=== PATIENT | male | born 1940 | race Caucasian/White ===

== ENCOUNTER 2023-10-04 09:17 | Inpatient (IN) | payer MEDICARE, OTHER, SELFPAY ==
[2023-10-04] VITALS (17 sets, daily range): BP systolic 110–147; BP diastolic 39–79; PULSE 55–62; RESP 17–22; TEMP 36.5–36.9; O2SAT 92–98; BMI 21.6; BMI 21.3
--- NOTE | 2023-10-04 08:37 | ED_ITS ---
[facility] Adult General Chief complaint: Weakness Stated complaint: Weakness Time Seen by Provider: 10/04/23 09:18 History of Present Illness HPI narrative: 83-year-old gentleman with a history of type 2 diabetes, gout hypertension, hyperlipidemia, very hard of hearing was seen at [facility] on September 27 and with complaints of nausea vomiting chills general weakness and headache starting 9-10 days ago. He was told that he likely had a virus but apparently the viral panel was unremarkable. CT scans of the abdomen, head, blood work all showed no other etiology. They are presenting to [facility] almost a week later still complaining of global weakness to the point that he is unable to get off the couch. He has apparently been on the couch for the last week. He is dizzy when he sits up, complains of having no energy and his is concerned that he is becoming disoriented. He has a minimal cough at most and today was noted to be febrile to 100.5?. Related Data Allergies Allergy/AdvReac Type Severity Reaction Status Date / Time No Known Drug Allergies Allergy Verified 10/04/23 09:29 Review of Systems Review of Systems Narrative: Pertinent positive and negative findings as per HPI Patient History Medical History (Updated 10/04/23 @ 12:19 by Gretel Jha MD) Gout Hypertension Hyperlipidemia Type 2 diabetes mellitus Social History Smoking Status: Former smoker Exam Initial Vital Signs Initial Vital Signs: Vital Signs Pulse Rate 57 L 10/04/23 09:13 Pulse Oximetry 95 10/04/23 09:13 General: Chronically ear elder appearing gentleman extremely hard of hearing dry mucous membranes developing vesicles on the left side of the lower lip but alert, appropriate and able to respond appropriately when he is able to hear the questions HEENT: Dry mucous membranes, normal sclera with reactive pupils, Neck: No JVD, supple, no cervical adenopathy Respiratory: Lungs are clear to auscultation, no wheezing no rales no rhonchi. Full and symmetrical air movement Cardiac: Regular rate and rhythm no murmurs no bruits Abdomen: Soft, nontender, good bowel tones, no flank pain Skin: Warm and dry, no rashes, decreased skin turgor overall Neurologic: Globally weak but otherwise Grossly neurologically intact with no obvious asymmetries or abnormalities Extremities: No trauma, well perfused, no lower extremity edema Psych: Cooperative, appropriate insight and affect Course Orders Ordered: ED Orders 10/04/23 09:17 XR chest 1V Stat Urinalysis and Microscopic Stat 10/04/23 09:18 EKG-12 Lead Stat 10/04/23 09:20 Type and Screen Stat 10/04/23 09:29 Complete Blood Count AUTO DIFF Stat Comprehensive Metabolic Panel Stat Lactate (Lactic Acid) Stat Lipase Stat Magnesium Stat Procalcitonin Stat Troponin I Stat 10/04/23 09:30 Respiratory Panel (Film Array) Stat 10/04/23 10:50 Blood Culture Stat Discontinued Medications Sodium Chloride (Normal Saline 0.9%) 1,000 mls @ 1,000 mls/hr IV BOLUS ONE Stop: 10/04/23 11:01 Last Admin: 10/04/23 10:36 Dose: 1,000 mls/hr Documented By: PHILIPPE Ondansetron HCl (Ondansetron 4 Mg/2 Ml Inj) 4 mg IV NOW ONE Stop: 10/04/23 09:18 Last Admin: 10/04/23 09:45 Dose: 4 mg Documented By: ALENA Oxycodone/Acetaminophen (Oxycodone/Acetaminophen 5/325 Tablet) 2 tab PO NOW ONE Stop: 10/04/23 09:18 Last Admin: 10/04/23 10:04 Dose: Not Given Documented By: ALENA Vital Signs Vital signs: Vital Signs - 8 hr 10/04/23 09:13 10/04/23 09:14 10/04/23 09:14 Temperature Pulse Rate 57 L 57 L Respiratory Rate Blood Pressure 125/79 Pulse Oximetry 95 97 Oxygen Delivery Method 10/04/23 09:20 10/04/23 09:30 10/04/23 09:30 Temperature 97.9 F Pulse Rate 57 L 60 Respiratory Rate 18 Blood Pressure 125/79 122/60 Pulse Oximetry 98 97 Oxygen Delivery Method Room Air 10/04/23 10:00 10/04/23 10:00 10/04/23 10:24 Temperature Pulse Rate 58 L 55 L Respiratory Rate Blood Pressure 138/65 Pulse Oximetry 98 Oxygen Delivery Method 10/04/23 10:31 10/04/23 10:37 10/04/23 11:00 Temperature Pulse Rate 58 L 60 Respiratory Rate Blood Pressure 140/61 Pulse Oximetry 92 94 Oxygen Delivery Method Room Air 10/04/23 11:01 10/04/23 11:01 10/04/23 11:30 Temperature Pulse Rate 60 61 Respiratory Rate 22 Blood Pressure 110/56 L Pulse Oximetry 96 98 Oxygen Delivery Method 10/04/23 11:31 10/04/23 11:31 Temperature Pulse Rate 62 Respiratory Rate 20 Blood Pressure 131/60 Pulse Oximetry 98 Oxygen Delivery Method Room Air Medical Decision Making Lab Data 10/04/23 09:29 10/04/23 09:29 Labs: Lab Results 10/04/23 10/04/23 10/04/23 Range/Units 09:20 09:29 09:30 WBC 10.8 (4.5-11.0) X10^3/uL RBC 2.74 L (4.5-5.9) X10^6/uL Hgb 8.6 L (13.5-17.5) g/dL Hct 24.3 L (41-53) % MCV 88.8 (80-100) fL MCH 31.5 (26-34) PG MCHC 35.5 (30-36) % RDW 15.1 H (11.6-14.8) % Plt Count 306 (150-400) X10^3/uL Neut % (Auto) 74.3 (50-75) % Lymph % (Auto) 9.8 L (25-40) % Mineral % (Auto) 15.2 H (3-14) % Eos % (Auto) 0.5 L (2-4) % Baso % (Auto) 0.2 (0-2) % Neut # (Auto) 8000 H (9972-5032) /uL Lymph # (Auto) 1100 (2081-1968) /uL Mineral # (Auto) 1600 H (0-900) /uL Eos # (Auto) 100 (0-450) /uL Baso # (Auto) 0 (0-100) /uL Sodium 134 L (137-145) mmol/L Potassium 4.4 (3.4-5.1) mmol/L Chloride 106 (98-107) mmol/L Carbon Dioxide 21 L (22-32) mmol/L BUN 16 (9-20) mg/dL Creatinine 0.80 (0.66-1.25) mg/dL Estimated GFR > 60 (>60) mL/min BUN/Creatinine Ratio 20.0 (6-22) Glucose 124 H (80-110) mg/dL Lactate 1.3 (0.7-2.1) mmol/L Calcium 7.5 L (8.4-10.2) mg/dL Magnesium 1.8 (1.6-2.3) mg/dL Total Bilirubin 1.4 H (0.2-1.3) mg/dL AST 80 H (17-59) IU/L ALT 77 H (<50) IU/L Alkaline Phosphatase 76 (38-126) U/L Troponin I < 0.012 (0.01-0.034) ng/mL Total Protein 6.3 (6.3-8.2) g/dL Albumin 2.8 L (3.5-5.0) g/dL Globulin 3.5 (1.7-4.1) g/dL Albumin/Globulin Ratio 0.8 L (1.0-2.8) Lipase 123 (23-300) U/L Procalcitonin 0.31 (<0.5) ng/mL Chlamy pneumoniae PCR Not detected (Not Detect) Adenovirus (PCR) Not detected (Not Detect) B.parapertussis DNA PCR Not detected (Not Detecte) Coronavirus OC43 (PCR) Not detected (Not Detect) Coronavirus HKU1 (PCR) Not detected (Not Detect) Coronavirus 229E (PCR) Not detected (Not Detect) SARS-CoV-2 (PCR) Not detected (Not Detecte) Coronavirus NL63 (PCR) Not detected (Not Detect) Human Metapneumovir PCR Not detected (Not Detect) Influenza Type A (PCR) Not detected (Not Detect) Influenza Type B (PCR) Not detected (Not Detect) M. pneumoniae (PCR) Not detected (Not Detect) Parainfluenza 1 (PCR) Not detected (Not Detect) Parainfluenza 2 (PCR) Not detected (Not Detect) Parainfluenza 3 (PCR) Not detected (Not Detect) Parainfluenza 4 (PCR) Not detected (Not Detect) RSV (PCR) Not detected (Not Detect) Entero/Rhino (PCR) Not detected (Not Detect) Blood Type O Positive Antibody Screen Negative MDM Narrative Medical decision making narrative: CC: Weakness, currently day 10 after reported influenza diagnosis Complicating co-morbidities: Age, lives independently with his Data collected from: patient Medical records reviewed: Notes from [facility] from ED visits on September 27 and for same complaints are reviewed Differential considered: Viral syndrome with weakness, developing pneumonia, myocarditis, intra-abdominal abscess Exam documented above, pertinent findings include: Patient is globally weak but has no specific localizing findings Rectal exam shows weakly guaiac-positive brown soft stool Lab Test results independently reviewed as above. Pertinent findings: CBC shows a white count of 10.8, H&H of 8.6 and 24.3. No significant left shift. Platelets are appropriate. On September 27 H&H was 11.1 and 34.1 Chemistries show normal renal function. Calcium is slightly low but corrects with albumin. Liver studies show bilirubin at 1.4, AST at 80, ALT at 77, these are increased from low baseline numbers appreciated on September 27. Lactic acid is appropriate Serology shows no obvious viruses Procalcitonin is not elevated No pancreatitis Troponin is undetectable Independently reviewed EKG: Sinus bradycardia at a rate of 57. Left axis deviation with nonspecific conduction delay. No acute ischemic changes Imaging studies independently reviewed: Chest x-ray shows mild cardiomegaly, no obvious infiltrates, minor interstitial findings consistent with a viral pneumonia Consultations: Hospitalist Treatments: Fluids, type and screen, Zosyn antibiotics after blood cultures were obtained Re-evaluations: Patient is in formalin plans and uncertain etiology of his hearing loss, fevers and mild acute anemia Discussion: 83-year-old gentleman who has been having symptoms over the last 10 days of weakness, getting worse. Initially had CT scans of the abdomen following day had his head scanned labs were entirely unremarkable. Comes in today with continued complaints of weakness. Low-grade fever at 100.5. He is globally weak all over without any localizing symptoms. He is exceptionally hard of hearing. His H&H has dropped over the last 4-5 days. Type and screen has been ordered this will be trended. He is weakly guaiac-positive with soft brown stool in the rectal vault. Care is reviewed with Dr. Best, admitting hospitalist. We will go ahead and begin antibiotics in light of the slight fever and continue to evaluate. At this point there is no evidence of acute renal failure, stroke liver failure, sepsis or viral pathology as identified by our viral panel. Discharge Plan Departure Patient Disposition: Admitted as Observation Clinical Impression: Weakness Anemia Qualifiers: Anemia type: unspecified type Qualified Code(s): D64.9 - Anemia, unspecified Admit Date/Time: 10/04/23 12:19
--- NOTE | 2023-10-04 09:17 | DI.RAD.S_ITS ---
PROCEDURE: XR CHEST 1V INDICATIONS: weakness TECHNIQUE: One view of the chest was acquired. COMPARISON: None. FINDINGS: Surgical changes and devices: None. Lungs and pleura: Generalized interstitial prominence can be seen. No pleural effusions or pneumothorax. Mediastinum: The cardiac contours are at the upper limits of normal. The aorta demonstrates calcification and tortuosity. Bones and chest wall: No suspicious bony lesions. Age-appropriate bony degenerative changes are seen. Overlying soft tissues appear unremarkable. IMPRESSION: Generalized interstitial prominence can be seen. This is attributed to pulmonary edema in this patient with the heart size at the upper limits of normal. However, differential diagnosis includes baseline parenchymal coarsening. Dictated by: Zoran Stark M.D. on 10/04/2023 at 8:42 Approved by: Zoran Stark M.D. on 10/04/2023 at 8:44
[2023-10-04 09:45] LABS: Add Manual Diff / Slide Review NO; Basophils Absolute Auto 0 /uL (0-100); Basophils Percent Auto 0.2 % (0-2); Eosinophils Absolute Auto 100 /uL (0-450); Eosinophils Percent Auto 0.5 % (2-4); Hematocrit 24.3 % (41-53); Hemoglobin 8.6 g/dL (13.5-17.5); Lymphocytes Absolute Auto 1100 /uL (1100-4500); Lymphocytes Percent Auto 9.8 % (25-40); Mean Corpuscular HGB Conc 35.5 % (30-36); Mean Corpuscular Hemoglobin 31.5 PG (26-34); Mean Corpuscular Volume 88.8 fL (80-100); Monocytes Absolute Auto 1600 /uL (0-900); Monocytes Percent Auto 15.2 % (3-14); Neutrophils Absolute Auto 8000 /uL (1500-7000); Neutrophils Percent Auto 74.3 % (50-75); Platelet Count 306 X10^3/uL (150-400); Red Blood Cell Count 2.74 X10^6/uL (4.5-5.9); Red Cell Distribution Width 15.1 % (11.6-14.8); White Blood Cell Count 10.8 X10^3/uL (4.5-11.0)
[2023-10-04] MEDS: ONDANSETRON 4 MG/2 ML INJ IV (09:45)
[2023-10-04 09:57] LABS: Alanine Aminotransferase 77 IU/L (<50); Albumin 2.8 g/dL (3.5-5.0); Albumin Globulin Ratio 0.8 (1.0-2.8); Alkaline Phosphatase 76 U/L (38-126); Aspartate Aminotransferase 80 IU/L (17-59); Bilirubin Total 1.4 mg/dL (0.2-1.3); Blood Urea Nitrogen 16 mg/dL (9-20); Calcium 7.5 mg/dL (8.4-10.2); Carbon Dioxide 21 mmol/L (22-32); Chloride 106 mmol/L (98-107); Estimated Glomerular Filt Rate > 60 mL/min (>60); Globulin 3.5 g/dL (1.7-4.1); Glucose 124 mg/dL (80-110); HEMOLYSIS 202 (0-50); Lactate (Lactic Acid) 1.3 mmol/L (0.7-2.1); Lipase 123 U/L (23-300); Magnesium 1.8 mg/dL (1.6-2.3); Potassium 4.4 mmol/L (3.4-5.1); Sodium 134 mmol/L (137-145); Total Protein 6.3 g/dL (6.3-8.2)
--- NOTE | 2023-10-04 10:00 | PC.NURSE ---
PT endorses dizziness which worsens with exertion. He was nauseous and vomited last week, but has not vomited since. Pt is hard of hearing and his is concerned that he has an ear infection causing his dizziness. I informed family we would wait for results to come back. Pt resting in bed, denies chest pain or any other pain. He remains somewhat dizzy at rest in bed.
[2023-10-04 10:08] LABS: Troponin I < 0.012 ng/mL (0.01-0.034)
[2023-10-04 10:13] LABS: Procalcitonin 0.31 ng/mL (<0.5)
[2023-10-04 10:28] LABS: Adenovirus Not Detected (Not Detect); B. parapertussis Not Detected (Not Detecte); Bordetella pertussis Not Detected (Not Detect); Chlamydophila pneumoniae Not Detected (Not Detect); Coronavirus 229E Not Detected (Not Detect); Coronavirus HKU1 Not Detected (Not Detect); Coronavirus NL 63 Not Detected (Not Detect); Coronavirus OC43 Not Detected (Not Detect); Human Metapneumovirus Not Detected (Not Detect); Human Rhinovirus/Enterovirus Not Detected (Not Detect); Influenza A Not Detected (Not Detect); Influenza B Not Detected (Not Detect); Mycoplasma pneumoniae Not Detected (Not Detect); Parainfluenza Virus 1 Not Detected (Not Detect); Parainfluenza Virus 2 Not Detected (Not Detect); Parainfluenza Virus 3 Not Detected (Not Detect); Parainfluenza Virus 4 Not Detected (Not Detect); Respiratory Syncytial Virus Not Detected (Not Detect); SARS- CoV-2 Not Detected (Not Detecte)
[2023-10-04] MEDS: SODIUM CHLORIDE 0.9% 1,000 ML 1000 ML IV (10:36)
--- NOTE | 2023-10-04 12:39 | P.HP_ITS ---
History of Present Illness History of Present Illness Date Patient Seen: 10/04/23 Chief complaint: Weakness Narrative: Patient presents with persistent weakness. The patient apparently was seen at would be emergency department on the and for weakness. The patient had an extensive workup including a CT of the abdomen, and head all of which were normal. He has had low-grade fevers and persistent weakness. He also did have vomiting and diarrhea which have improved over the last day. He arrived here with a chief complaint of weakness and being unable to get out of bed for the last week. He does have a new anemia here with an H&H of 8.6 and 24 can bear to 11 and 34 week ago. When I spoke with the patient he notes that a week ago he went fishing and everything was fine. The next morning he was unable to get out of bed. When I asked him if he was feeling weak in the arms and legs he denied this and said that whenever he would try to get up he would have spinning and dizziness. He denies headache but has had some neck pain. A CT of the brain was unremarkable last week at [facility]. The patient has no history of vertigo. He denies current fevers, or chills. He also denies diplopia, numbness or weakness of arms or legs. No speech difficulties. He is extremely hard of hearing, this is chronic but worse in the last week. He notes a history of a abdominal aneurysm and left carotid stenosis. [facility] Medical History Gout Hypertension Hyperlipidemia Type 2 diabetes mellitus Social History household members: spouse Smoking Status: Former smoker alcohol intake: former Meds Home Medications and Allergies Home Medications Medication Instructions Recorded Confirmed Type allopurinol 300 mg tablet 300 mg PO DAILY 10/04/23 10/04/23 History amlodipine 10 mg tablet 10 mg PO DAILY 10/04/23 10/04/23 History aspirin 81 mg tablet,delayed 81 mg PO DAILY 10/04/23 10/04/23 History release atorvastatin 80 mg tablet 80 mg PO BEDTIME 10/04/23 10/04/23 History lisinopril 40 mg tablet 40 mg PO DAILY 10/04/23 10/04/23 History metformin 500 mg tablet 500 mg PO BID 10/04/23 10/04/23 History multivitamin with minerals-folic 1 tab PO DAILY 10/04/23 10/04/23 History acid 80 mcg chewable tablet (Centrum Adult 50 Plus) Allergies Allergy/AdvReac Type Severity Reaction Status Date / Time No Known Drug Allergies Allergy Verified 10/04/23 09:29 Review of Systems Review of Systems Narrative: All else reviewed and otherwise unremarkable except as noted in the history and physical. Exam Vital Signs (past 8 hours): - 10/04/23 09:13 10/04/23 09:14 10/04/23 09:14 Temperature Pulse Rate 57 L 57 L Respiratory Rate Blood Pressure 125/79 Pulse Oximetry 95 97 Oxygen Delivery Method 10/04/23 09:20 10/04/23 09:30 10/04/23 09:30 Temperature 97.9 F Pulse Rate 57 L 60 Respiratory Rate 18 Blood Pressure 125/79 122/60 Pulse Oximetry 98 97 Oxygen Delivery Method Room Air 10/04/23 10:00 10/04/23 10:00 10/04/23 10:24 Temperature Pulse Rate 58 L 55 L Respiratory Rate Blood Pressure 138/65 Pulse Oximetry 98 Oxygen Delivery Method 10/04/23 10:31 10/04/23 10:37 10/04/23 11:00 Temperature Pulse Rate 58 L 60 Respiratory Rate Blood Pressure 140/61 Pulse Oximetry 92 94 Oxygen Delivery Method Room Air 10/04/23 11:01 10/04/23 11:01 10/04/23 11:30 Temperature Pulse Rate 60 61 Respiratory Rate 22 Blood Pressure 110/56 L Pulse Oximetry 96 98 Oxygen Delivery Method 10/04/23 11:31 10/04/23 11:31 10/04/23 12:00 Temperature Pulse Rate 62 Respiratory Rate 20 Blood Pressure 131/60 147/64 H Pulse Oximetry 98 Oxygen Delivery Method Room Air 10/04/23 12:00 Temperature Pulse Rate 61 Respiratory Rate 18 Blood Pressure Pulse Oximetry 96 Oxygen Delivery Method Oxygen Delivery Method Room Air Narrative Exam Narrative: NAD, alert and oriented. Fluent speech. Lungs are clear, normal rate and effort. Heart is regular, no murmur gallop or rub. Abdomen is soft, non distended. Extremities are free of edema. Hard of hearing, normal judgement and affect. Pupils are symmetric, EOMI, no nystagmus. Neck is supple, normal trachea. Arms and legs are free of edema with good pedal pulses. Skin is free of rash or lesions. Objective Imaging Chest x-ray: Radiologist's impression: Generalized interstitial prominence can be seen. This is attributed to pulmonary edema in this patient with the heart size at the upper limits of normal. However, differential diagnosis includes baseline parenchymal coarsening. Labs 10/04/23 09:29 10/04/23 09:29 Labs: Laboratory Results - last 24 hr 10/04/23 10/04/23 10/04/23 09:20 09:29 09:30 WBC 10.8 RBC 2.74 L Hgb 8.6 L Hct 24.3 L MCV 88.8 MCH 31.5 MCHC 35.5 RDW 15.1 H Plt Count 306 Neut % (Auto) 74.3 Lymph % (Auto) 9.8 L Sharkey % (Auto) 15.2 H Eos % (Auto) 0.5 L Baso % (Auto) 0.2 Neut # (Auto) 8000 H Lymph # (Auto) 1100 Sharkey # (Auto) 1600 H Eos # (Auto) 100 Baso # (Auto) 0 Sodium 134 L Potassium 4.4 Chloride 106 Carbon Dioxide 21 L BUN 16 Creatinine 0.80 Estimated GFR > 60 BUN/Creatinine Ratio 20.0 Glucose 124 H Lactate 1.3 Calcium 7.5 L Magnesium 1.8 Total Bilirubin 1.4 H AST 80 H ALT 77 H Alkaline Phosphatase 76 Troponin I < 0.012 Total Protein 6.3 Albumin 2.8 L Globulin 3.5 Albumin/Globulin Ratio 0.8 L Lipase 123 Procalcitonin 0.31 Chlamy pneumoniae PCR Not detected Adenovirus (PCR) Not detected B.parapertussis DNA PCR Not detected Coronavirus OC43 (PCR) Not detected Coronavirus HKU1 (PCR) Not detected Coronavirus 229E (PCR) Not detected SARS-CoV-2 (PCR) Not detected Coronavirus NL63 (PCR) Not detected Human Metapneumovir PCR Not detected Influenza Type A (PCR) Not detected Influenza Type B (PCR) Not detected M. pneumoniae (PCR) Not detected Parainfluenza 1 (PCR) Not detected Parainfluenza 2 (PCR) Not detected Parainfluenza 3 (PCR) Not detected Parainfluenza 4 (PCR) Not detected RSV (PCR) Not detected Entero/Rhino (PCR) Not detected Blood Type O Positive Antibody Screen Negative Assessment & Plan Assessment & Plan narrative: 1. Vertigo, present on admission and active. 2. Fever, present on admission and active. 3. New anemia, present on admission and active. 4. Acute pulmonary edema, present on admission and active. 5. Hypertension, present on admission and active. 6. Hyperlipidemia, present on admission and active. 7. Type 2 diabetes, present on admission and active. PLAN: -blood cx -empiric antibiotics. -stool PCR rule out C diff toxin. -anemia panel including iron, B12, and folate. We will see add a reticulocyte count. -monitor H and H, blood transfusion if needed. -cardiac echo rule out cardiac dysfunction given pulmonary edema. -insulin sliding scale correctional and follow up blood sugar. Check A1c. -trial of meclizine. -brain MRI rule out posterior cerebellar stroke. Time Spent With Patient Time with patient: 30 to 49 minutes with 50% spent counseling/coordinating care Quality MIPS - Admit I confirm the patient?s Advance Care Plan is present, Code status is documented, Surrogate decision maker is in patient?s record [If Yes, STOP here]: Yes [facility] - Meds 'Current medications' to include all prescriptions, [id number] products, herbals, cannabis/cannabidiol products, and vitamin/mineral/dietary (nutritional) supplements. I have utilized all available resources to obtain, update, or review the patient?s current medications. [If Yes, STOP here]: Yes
[2023-10-04] MEDS: PIPERACILLIN/TAZO 4.5 GM in SODIUM CHLORIDE 0.9% 100 ML IV (12:41)
--- NOTE | 2023-10-04 13:06 | DI.ECHO.S_ITS ---
[facility] +---------+ Hospital +---------+ : : [address] : : : : [id number] : : : : Phone: [phone] Echocardiogram Report + + :Name: MOLINA BASS Study Date: 10/05/2023 Height: 72 in : :[facility] ReadingLocation: Weight: 159 lb : : Gender: Male BSA: 1.9 m2 : :: 1940 Age: 83 yrs BP: 128/47 mmHg: :Reason For Study: PULMONARY EDEMA : :Ordering Physician: TRENT, : :BARBRA Romero Performed By: Tata Moreno : :Referring: BARBRA NEWMAN : + + Interpretation Summary Sinus rhythm with HR 55-80 bpm. Normal LV size and wall thickness. Normal wall motion and LV systolic function. Ejection fraction is 50-55% stage I diastolic dysfunction. Mild left atrial enlargement. Otherwise normal chamber sizes. Aortic sclerosis without stenosis. Otherwise no valvular abnormalities. Estimated PA systolic pressure is 35 mm Hg assuming RA pressure of 3 mm Hg. No prior study available for comparison. Procedure: A two-dimensional transthoracic echocardiogram with color flow and Doppler was performed. The study quality was technically adequate. There is no prior echocardiogram noted for this patient. The patient was in sinus rhythm with heart rates between 55-80 bpm during the exam. Left Ventricle: The left ventricle is normal in size and wall thickness. The ejection fraction is estimated to be 55-60%. Right Ventricle: The right ventricle is normal in size and function. Atria: The left atrium is mildly dilated. Right atrial size is normal. There is no Doppler evidence for an interatrial shunt. Mitral Valve: The mitral valve is normal in structure and function. There is trace mitral regurgitation. Aortic Valve: The aortic valve is mildly calcified. There is mild aortic valve sclerosis. There is no aortic valve stenosis. No aortic regurgitation is present. Tricuspid Valve: The tricuspid valve is normal in structure and function. There is trace tricuspid regurgitation. Pulmonic Valve: The pulmonic valve is not well seen, but is grossly normal. There is no pulmonic valvular regurgitation. Great Vessels: The aortic root is normal size. The dimensions of the ascending aorta are normal. The IVC is of normal diameter and collapses greater than 50% with a sniff. This suggests a low right atrial pressure of 3 mm Hg. Pericardium/ Pleura There is no pericardial effusion. There is no pleural effusion. MMode/2D Measurements & Calculations LVIDd: 5.8 cm LVOT diam: 2.0 cm LVIDs: 3.8 cm Ao root diam: 3.5 cm FS: 34.6 % asc Aorta Diam: 3.0 cm EPSS: 1.1 cm Ao Arch Diam (Prox Trans): 2.7 cm IVSd: 0.98 cm LVPWd: 0.94 cm LV moreno. diameter/BSA (cm/m^2): 3.0 LV sys. diameter/BSA (cm/m^2): 2.0 LA A2 area: 23.6 cm2 RA long axis: 5.8 cm LA A4 area: 18.9 cm2 RA area: 18.5 cm2 LA length (vol): 5.4 cm RA vol: 50.2 ml LA vol: 69.6 ml RA : 26.0 ml/m2 LA vol index: 36.0 ml/m2 IVC diam: 1.8 cm RVD1 (basal): 3.4 cm RVD2 (mid): 3.1 cm TAPSE: 2.3 cm Doppler Measurements & Calculations Ao V2 max: 151.1 cm/sec LVOT Max Vinay: 96.4 cm/sec Ao V2 mean: 108.7 cm/sec LV V1 max P.7 mmHg Ao max P.1 mmHg LV V1 VTI: 21.7 cm Ao mean P.2 mmHg PILLO(I,D): 2.0 cm2 Ao V2 VTI: 34.3 cm PILLO(V,D): 2.0 cm2 sev ratio: 0.63 PILLO indexed to BSA (cm^2/m^2): 1.0 MV E max vinay: 93.1 cm/sec TR max vinay: 282.5 cm/sec MV A max vinay: 109.5 cm/sec TR max P.9 mmHg MV E/A: 0.85 PA V2 max: 123.3 cm/sec Med Peak E' Vinay: 6.8 cm/sec PA V2 mean: 78.7 cm/sec E/E' med: 13.6 PA mean P.8 mmHg Lat Peak E' Vinay: 9.3 cm/sec PA pr(Accel): 39.6 mmHg E/E' lat: 10.1 E/e' average: 11.8 MV dec time: 0.27 sec SV(LVOT): 67.8 ml Electronically signed by: Susanna Case M.D. on Reading Physician:10/05/2023 12:35 PM
[2023-10-04] MEDS: SODIUM CHLORIDE 0.9% 1,000 ML 100 ML IV ×2 (13:35→23:16)
[2023-10-04 14:31] LABS: Reticulocyte Count, Percent 1.5 % (0.9-2.6)
[2023-10-04 14:36] LABS: Hemoglobin A1C% w Est Avg Glu 5.3 % (4.0-6.0)
[2023-10-04 14:43] LABS: HEMOLYSIS < 15 (0-50); Iron 22 ug/dL (49-181)
--- NOTE | 2023-10-04 14:49 | DI.MRI.S_ITS ---
PROCEDURE: MR HEAD/BRAIN WO CON INDICATIONS: vertigo TECHNIQUE: Non-contrast axial T1 spin echo, axial T2 fast spin echo, sagittal and axial FLAIR, coronal T2 fast spin echo, axial gradient echo, axial diffusion and ADC through the brain. COMPARISON: None. FINDINGS: Image quality: This examination is limited by involuntary motion artifact. CSF spaces: Ventricles appear symmetric in size and shape. Basal cisterns are patent. No extra-axial fluid collections. Brain: No intracranial bleeds or mass effects. There is cerebral volume loss for age. There are periventricular and deep white matter chronic small vessel ischemic changes. Brainstem appears normal. Diffusion-weighted images show no acute infarct. No chronic ischemic insults. Normal intravascular flow voids are present. In this patient with this given history, scrutiny is given to cerebellopontine angle cisterns and to the internal auditory canals. To the limits of this standard protocol study, no masses can be seen within these regions. Skull and face: Calvarial bone marrow is normal in signal. Orbits are normal. Note is made of bilateral lens replacements. Sinuses: Moderate mastoid air cell fluid can be seen on both sides. No significant paranasal sinus disease is seen. IMPRESSION: Moderate bilateral mastoid air cell fluid can be seen. No findings of acute or subacute infarction can be seen. To the limits of this noncontrast study, no findings masses or mass effect can be seen, including within the cerebellopontine angle cisterns and the internal auditory canals. Note is made of age-appropriate brain parenchymal volume loss and chronic small vessel ischemic changes. Dictated by: Zoran Stark M.D. on 10/04/2023 at 16:46 Approved by: Zoran Stark M.D. on 10/04/2023 at 16:48
[2023-10-04 14:52] LABS: C-Reactive Protein Quant 13.1 mg/dL (<1.0)
[2023-10-04 14:54] LABS: Percent Iron Saturation 15 % (20-50); Total Iron Binding Capacity 151 ug/dL (261-462); Transferrin 99 mg/dL (206-381)
[2023-10-04 14:55] LABS: Procalcitonin 0.31 ng/mL (<0.5)
[2023-10-04] MEDS: MECLIZINE HCL 12.5 MG TABLET PO (15:16)
[2023-10-04 15:51] LABS: Folate 11.3 ng/mL (2.76-20.0); Vitamin B12 551 pg/mL (239-931)
[2023-10-04 18:36] LABS: Appearance Urine UA CLEAR; Bilirubin Urine UA NEGATIVE (NEGATIVE); Color Urine UA YELLOW; Glucose Urine UA NEGATIVE (Negative); Ketones Urine UA NEGATIVE (NEGATIVE); Leukocyte Esterase Urine UA NEGATIVE (NEGATIVE); Nitrite Urine UA NEGATIVE (Negative); Occult Blood Urine UA TRACE-INTACT (Negative); Protein Urine UA 1+ (Negative); Specific Gravity Urine UA 1.015 (1.000-1.035)
[2023-10-04 18:48] LABS: Bacteria Urine None Seen; Culture Indicated Urine Cult Not Indicated; RBC Urine None Seen (0-5/HPF); Squamous Epithelial Cell Urine None Seen (0-5/HPF); Urine Volume 10mL (spun); WBC Urine None Seen (0-5/HPF)
[2023-10-04] MEDS: SENNOSIDES 8.6 MG TABLET 17.2 MG PO (20:07)
[2023-10-05 04:30] VITALS: BP 127/53; PULSE 71; RESP 18; TEMP 36.7; O2SAT 94
[2023-10-05 05:36] LABS: Add Manual Diff / Slide Review NO; Basophils Absolute Auto 100 /uL (0-100); Basophils Percent Auto 0.6 % (0-2); Eosinophils Absolute Auto 100 /uL (0-450); Eosinophils Percent Auto 0.9 % (2-4); Hematocrit 26.2 % (41-53); Hemoglobin 8.9 g/dL (13.5-17.5); Lymphocytes Absolute Auto 1000 /uL (1100-4500); Lymphocytes Percent Auto 10.1 % (25-40); Mean Corpuscular Hemoglobin 30.7 PG (26-34); Mean Corpuscular Volume 90.3 fL (80-100); Monocytes Absolute Auto 1700 /uL (0-900); Monocytes Percent Auto 18.2 % (3-14); Neutrophils Absolute Auto 6700 /uL (1500-7000); Neutrophils Percent Auto 70.2 % (50-75); Platelet Count 344 X10^3/uL (150-400); Red Cell Distribution Width 15.2 % (11.6-14.8); White Blood Cell Count 9.5 X10^3/uL (4.5-11.0)
[2023-10-05 05:46] LABS: BUN Creatinine Ratio 16.3 (6-22); Blood Urea Nitrogen 14 mg/dL (9-20); Calcium 8.2 mg/dL (8.4-10.2); Carbon Dioxide 21 mmol/L (22-32); Chloride 104 mmol/L (98-107); Estimated Glomerular Filt Rate > 60 mL/min (>60); Glucose 100 mg/dL (80-110); HEMOLYSIS < 15 (0-50); Potassium 3.6 mmol/L (3.4-5.1); Sodium 134 mmol/L (137-145)
--- NOTE | 2023-10-05 07:31 | PM.PN.1 ---
Subjective Subjective Interval history: This is a 83-year-old male who was admitted with inability get a bed for 1 week. He had had a previous workup it would be general including CT of the brain and abdomen which were said to be unremarkable. He is severe hearing loss. He basically told me that every time he tries to get out of bed he develops acute dizziness. This sounded mostly like positional vertigo. He was started on meclizine and an MRI of the brain was ordered. He also had a relative anemia compared to labs a week ago. He would brown stool which is heme-positive and no report of rectal bleeding. This is being trended. S: He is sitting in a chair today. He worked with Physical therapy was noted to have no obvious nystagmus. He does continue to describe positional dizziness. Also notes a more acute on chronic hearing loss about a week ago. The patient was started on meclizine yesterday. He has a stiff neck and limited range of motion but denies trauma. This has been ongoing for the past several days. His notes that a week ago he could barely get out of bed and for 2 days was quite depressed and not eating much of anything. She notes he does look better today compared to a week ago but still is far from his baseline of independent ambulation and frequent outdoor activities including fishing. He denies any numbness or weakness of arms or legs. No radicular symptoms. He was very unstable with regards to gait per physical therapy. He had a very wide based gait. MRI of the brain is negative for cerebellar stroke. Exam Vital Signs (past 8 hours): - 10/05/23 04:30 Temperature 98.0 F Pulse Rate 71 Respiratory Rate 18 Blood Pressure 127/53 L Pulse Oximetry 94 Oxygen Flow Rate 0 Oxygen Delivery Method Room Air Oxygen Flow Rate 0 Narrative Exam Narrative: NAD, alert and oriented. Fluent speech. Lungs are clear, normal rate and effort. Heart is regular, no murmur gallop or rub. Abdomen is soft, non distended. Extremities are free of edema. He is sitting in a chair and can stand with assistance. He has a very wide-based unstable stance. Objective Imaging MRI - head: Radiologist's impression: Negative. No findings of acute or subacute infarction can be seen. To the limits of this noncontrast study, no findings masses or mass effect can be seen, including within the cerebellopontine angle cisterns and the internal auditory canals. Note is made of age-appropriate brain parenchymal volume loss and chronic small vessel ischemic changes. Labs 10/05/23 05:21 10/05/23 05:21 Labs: Laboratory Results - last 24 hr 10/04/23 10/04/23 10/04/23 09:20 09:29 09:30 WBC 10.8 RBC 2.74 L Hgb 8.6 L Hct 24.3 L MCV 88.8 MCH 31.5 MCHC 35.5 RDW 15.1 H Plt Count 306 Neut % (Auto) 74.3 Lymph % (Auto) 9.8 L [place] % (Auto) 15.2 H Eos % (Auto) 0.5 L Baso % (Auto) 0.2 Neut # (Auto) 8000 H Lymph # (Auto) 1100 [place] # (Auto) 1600 H Eos # (Auto) 100 Baso # (Auto) 0 Percent Retic Sodium 134 L Potassium 4.4 Chloride 106 Carbon Dioxide 21 L BUN 16 Creatinine 0.80 Estimated GFR > 60 BUN/Creatinine Ratio 20.0 Glucose 124 H Hemoglobin A1c Lactate 1.3 Calcium 7.5 L Magnesium 1.8 Iron TIBC % Saturation Transferrin Total Bilirubin 1.4 H AST 80 H ALT 77 H Alkaline Phosphatase 76 Troponin I < 0.012 C-Reactive Protein Total Protein 6.3 Albumin 2.8 L Globulin 3.5 Albumin/Globulin Ratio 0.8 L Lipase 123 Vitamin B12 Folate Procalcitonin 0.31 Urine Color Urine Appearance Urine pH Ur Specific [place] Urine Protein Urine Glucose (UA) Urine Ketones Urine Occult Blood Urine Nitrate Urine Bilirubin Urine Urobilinogen Ur Leukocyte Esterase Urine RBC Urine WBC Ur Squamous Epith Cells Urine Bacteria Ur Culture Indicated? Vol Urine Centrifuged Chlamy pneumoniae PCR Not detected Adenovirus (PCR) Not detected B.parapertussis DNA PCR Not detected Coronavirus OC43 (PCR) Not detected Coronavirus HKU1 (PCR) Not detected Coronavirus 229E (PCR) Not detected SARS-CoV-2 (PCR) Not detected Coronavirus NL63 (PCR) Not detected Human Metapneumovir PCR Not detected Influenza Type A (PCR) Not detected Influenza Type B (PCR) Not detected M. pneumoniae (PCR) Not detected Parainfluenza 1 (PCR) Not detected Parainfluenza 2 (PCR) Not detected Parainfluenza 3 (PCR) Not detected Parainfluenza 4 (PCR) Not detected RSV (PCR) Not detected Entero/Rhino (PCR) Not detected Blood Type O Positive Antibody Screen Negative 10/04/23 10/04/23 10/05/23 14:18 18:25 05:21 WBC 9.5 RBC 2.90 L Hgb 8.9 L Hct 26.2 L MCV 90.3 MCH 30.7 MCHC 34.0 RDW 15.2 H Plt Count 344 Neut % (Auto) 70.2 Lymph % (Auto) 10.1 L [place] % (Auto) 18.2 H Eos % (Auto) 0.9 L Baso % (Auto) 0.6 Neut # (Auto) 6700 Lymph # (Auto) 1000 L [place] # (Auto) 1700 H Eos # (Auto) 100 Baso # (Auto) 100 Percent Retic 1.5 Sodium 134 L Potassium 3.6 Chloride 104 Carbon Dioxide 21 L BUN 14 Creatinine 0.86 Estimated GFR > 60 BUN/Creatinine Ratio 16.3 Glucose 100 Hemoglobin A1c 5.3 Lactate Calcium 8.2 L Magnesium Iron 22 L TIBC 151 L % Saturation 15 L Transferrin 99 L Total Bilirubin AST ALT Alkaline Phosphatase Troponin I C-Reactive Protein 13.1 H Total Protein Albumin Globulin Albumin/Globulin Ratio Lipase Vitamin B12 551 Folate 11.3 Procalcitonin 0.31 Urine Color Yellow Urine Appearance Clear Urine pH 6.0 Ur Specific [place] 1.015 Urine Protein 1+ H Urine Glucose (UA) Negative Urine Ketones Negative Urine Occult Blood Trace-intact Urine Nitrate Negative Urine Bilirubin Negative Urine Urobilinogen 2.0 H Ur Leukocyte Esterase Negative Urine RBC None seen Urine WBC None seen Ur Squamous Epith Cells None seen Urine Bacteria None seen Ur Culture Indicated? Cult not indicated Vol Urine Centrifuged 10ml (spun) Chlamy pneumoniae PCR Adenovirus (PCR) B.parapertussis DNA PCR Coronavirus OC43 (PCR) Coronavirus HKU1 (PCR) Coronavirus 229E (PCR) SARS-CoV-2 (PCR) Coronavirus NL63 (PCR) Human Metapneumovir PCR Influenza Type A (PCR) Influenza Type B (PCR) M. pneumoniae (PCR) Parainfluenza 1 (PCR) Parainfluenza 2 (PCR) Parainfluenza 3 (PCR) Parainfluenza 4 (PCR) RSV (PCR) Entero/Rhino (PCR) Blood Type Antibody Screen [facility] Medical History Gout Hypertension Hyperlipidemia Type 2 diabetes mellitus Social History household members: spouse Smoking Status: Former smoker alcohol intake: former Assessment & Plan Assessment & Plan narrative: 1. Vertigo, present on admission and active. 2. Fever, present on admission and active. 3. New anemia, present on admission and active. 4. Acute pulmonary edema, present on admission and active. 5. Hypertension, present on admission and active. 6. Hyperlipidemia, present on admission and active. 7. Type 2 diabetes, present on admission and active. 8. Iron deficiency with total iron of 22, TIBC of 151, % saturation of 15, transferrin 99. PLAN: -blood cx (pending, for fever). -will stop Abx. -anemia panel including iron, B12, and folate. We will see add a reticulocyte count. Pending. -monitor H and H, blood transfusion if needed. Stable. -cardiac echo rule out cardiac dysfunction given pulmonary edema. -insulin sliding scale correctional and follow up blood sugar. Check A1c. -trial of meclizine. Started 10/04. -brain MRI rule out posterior cerebellar stroke, was negative. -the patient has iron-deficiency and likely would require or benefit from endoscopy evaluation at some point, not necessarily while in the hospital. -he also has an elevated bilirubin of 1.4 and an AST of 80 and ALT of 77. We will repeat chemistries and consider ultrasound of abdomen if these remain abnormal. He had an abdominal CT would be last week which is said to have been normal. We will obtain these records. The patient requires ongoing hospital level surfaces. He is unable to walk without a very unstable wide-based gait. The etiology of his gait instability is unclear. The patient is a very high-risk for falls. In addition, he was felt by therapy not to be stay for on supervised walking with walker. The patient has neck pain, if he fails to improve over the next midnight, we will pursue imaging of his neck to rule out an acute neurologic issue related to neck findings. He also appears to be a candidate for [facility] facility rehabilitation given his severe acute changes in gait stability and general weakness. Time Spent With Patient Time with patient: 30 to 49 minutes with 50% spent counseling/coordinating care Quality VTE Deep Vein Thrombosis/Pulmonary Embolism Present on Admission: No
[2023-10-05] MEDS: ACETAMINOPHEN 325 MG TABLET 650 MG PO ×3 (08:16→21:10)
[2023-10-05 08:24] VITALS: BP 128/47; PULSE 70; RESP 20; TEMP 37; O2SAT 95
--- NOTE | 2023-10-05 09:00 | CM.DANOTE ---
Addendum entered by Aniya Badillo R.N. 10/05/23 11:39: DCP Cont: Met with patient's spouse, Reyna, who was at bedside. Introduced self and role. She is aware that patient is currently under observation status. She indicated that patient's primary care provider has been in [place], Dr. Troy Cervantes, but has not seen him for quite some time, stated, her has been healthy and independent, this is not like him. Stated that she sent patient to [facility] twice, and they continued to send him home. She then indicated, he was not getting better, not eating, weak, and my doctor recommended sending him to [facility], I just don't know why he is like this. Did discuss home versus skilled, since he currently would not qualify at this time, other than private pay, spouse stated, then I'll just take him home. Discussed home health services, brought in Medicare Choice List, if he is homebound, stated, she has no preferences, he has never needed anything like this. Stated that while patient has been weak, she did get him a wheelchair, and was working on getting a ramp. Home most likely will be the plan at this time, he does have a new provider appointment on 10-[address] Posada, in [place], will need to address this with the home health agency. Will initiate a face to face. Original Note: DCP: Case received, EMR reviewed and met with patient. Introduced self and role. Was able to obtain information regarding patient's baseline activity status at home prior to admission. DCP assessment completed with information currently available. Patient is an 83 year old male who admitted yesterday afternoon to the care of the hospitalist team. PCP: Was unable to get this information at this time, patient is hard of hearing. Patient came to the hospital via ambulance secondary to weakness. Notes indicate that patient was seen at [facility] on 09/27, and 09/28, due to complaints of nausea and vomiting. Patient indicated, he was told that he had a virus. All CT scans had showed no etiology. Notes indicated also that patient has been weak, unable to get up off of the couch. Patient had noted a fever upon admission. Patient is currently here under observation, and will be working with P.T. Met with patient in his room. He was sitting up in bed, hard of hearing, had one hearing aide in. Confirmed that he resides in [place] with spouse, He indicated that he has not needed to use any DME supplies before this recent occurrence with dizziness. He does have current P.T. orders which are pending. Spouse will be here later today, and will meet up with her. Nurse indicated that she had spoken to spouse, she stated that she would like him to be ambulate before coming home, barrier will be observation status, for he would not qualify. Will see how he does with P.T, and will have to have conversation with spouse. P: DCP to continue to follow. Patient is currently observation status, will plan on meeting with spouse today to discuss options. Aniya Badillo RN/Manager Business Systems Discharge Planning/Care Management CM Discharge Assessment Start: 10/05/23 08:57 Freq: Status: Active Protocol: Document 10/05/23 08:57 (Rec: 10/05/23 09:00 [id number]) Discharge Planning Assessment Assigned Regional Retail Sales Manager Aniya Badillo RN/Manager Business Systems Advance Directives? No History Provided By Patient,Family Member,Medical Record Prior Living Arrangements House Household Members spouse Type of transporation used prior to Drives own vehicle admit Independent with ADL's Yes Is patient alert and oriented? Yes Caregiver for Another No Patient/Family Preference Home with Home Health Comment Will be working with P.T. Will see how he does. Barriers to Discharge No Comment Unless patient is not able to mobilize, and is OBS, may be a barrier to return home. Discharge Plan Home Transportation Arrangement Spouse Referrals Initiated Other Additional Comment Will see how patient does with home health. If patient plan is home with home health Yes : Has signed face to face form been completed? Whiteboard Updated in Patient Room with Yes name and ext. # of Regional Retail Sales Manager Review Status In Process Next Review Type Continued Stay Review
[2023-10-05 11:00] VITALS: BP 131/56; PULSE 69; RESP 16; TEMP 36.4; O2SAT 97
--- NOTE | 2023-10-05 11:10 | PT.IIE ---
Medical History (Last Reviewed 10/04/23 @ 12:39 by Brendan Best MD) Gout Hyperlipidemia Hypertension Type 2 diabetes mellitus Physical Therapy Inpatient Evaluation/Re-Eval M1 PT/OT-IP Prior Functional Status Start: 10/05/23 08:36 Freq: NEEDED Status: Active Protocol: Document 10/05/23 10:02 MB (Rec: 10/05/23 11:10 MB [id number]) Medical Review Prior Functional Status Medical History Reviewed Yes Diet/Fluid Consistency Regular Communication Possibly WNLs when he has two functioning hearing aides in Mobility and Gait Pt is unclear. It sounds like he was I without AD a week ago before symptoms started. He states he has been using a w/c or RW since symptoms started Activities of Daily Living and IADL's See above Social History Household Members spouse Living Arrangements House Number of Floors (Floors) One Floor Number of Stairs To Enter/Railing? 1 step and grab bar to enter Home Environment Standard Height Toilet,Walk in Shower,Built-In Shower Seat Home Equipment Front Wheel Walker,Manual Wheelchair,Bedside Commode Employment Status Retired Additional Social History Comment Unclear about further home equipment given communication challenges with LA POSTA today M2 PT-IP Current Condition Start: 10/05/23 08:36 Freq: NEEDED Status: Active Protocol: Document 10/05/23 10:02 MB (Rec: 10/05/23 11:10 MB [id number]) Physical Therapy Current Condition Current Condition Evaluation Date 10/05/23 Treatment Diagnosis Weakness and dizziness after waking up after upset stomach Onset Date About a week ago per pt M3 PT-IP Subjective Start: 10/05/23 08:36 Freq: NEEDED Status: Active Protocol: Document 10/05/23 10:02 MB (Rec: 10/05/23 11:10 MB [id number]) Subjective Physical Therapy Visit Type Type Initial Evaluation Visit Start Time 10:02 Visit Stop Time 10:47 Number of BEAMING INSPECTOR Visits 0 Physical Therapy Visit Comments Patient Comments I'm sorry. I have one hearing aide and the other one's battery doesn't work. Therapy Pain Assessment Pain When Pain Assessed During Mobility Pain Present Pain Present Pain Reported Location Neck Intensity 5 Scale Used Foster-Sanders (Faces) Description Acute,With Movement Pain Behaviors Calling Out,Facial Grimacing, Guarding Pain Management Techniques Distraction,Re-positioning M4 PT-IP Mobility and Gait Start: 10/05/23 08:36 Freq: NEEDED Status: Active Protocol: Document 10/05/23 10:02 MB (Rec: 10/05/23 11:10 MB [id number]) PT-Bed Mobility Assessment Rolling Level of Assist Standby Assistance Supine to Sit Supine to Sit Standby Assistance,1 Person Assistance,Head of Bed Elevated,Bedrails Sit to Supine Sit to Supine Standby Assistance,1 Person Assistance Scooting Scooting to Edge of Bed Standby Assistance PT-Transfer Assessment Sit to and From Stand Sit to and from Stand Minimal Assistance,1 Person Assistance,Use of Upper Extremities Equipment Transfer Assistive Device Gait Belt,Front Wheeled Walker Orthotic/Prosthetic Devices or Brace: No Transfers Transfer Destination Chair Transfer Technique Stepping Transfer Ability Level of Assist Moderate Assistance,1 Person Assistance,Use of Upper Extremities Comments Mobility Comments PT attempts to check orthostatics and positioning for first position is high hook lying in the bed d/t pt already in position (and so PT does not get to check from supine). BP and HR in right UE from high hook lying position : 126/52, 64; standing 116/50, 81; standing 1'115/51, 75. Pt is a poor historian and cannot state if this movement makes his dizziness symptoms worse or not. He is unable to describe dizziness symptoms. + 2 help nearby and checked for BPPV. B Roll Test negative for nystagmus and pt only reports mild dizziness with rolling left and this is after PT asks him (he does not complain of dizziness sponaeously). Cervical rotation to the left is very limited and is only 5 deg passively with Brandi- Hallpike and pt c/o pain with this. Active cervical rotation to the right is at least 35 deg. Left [place]-Hallpike is negative for dizziness and nystagmus and positioning is poor d/t limited cervical rotation. Oculolmotor tracking grossly normal and no spontaneous nystagmus. Gait Assessment Gait Gait Assistance Required: Moderate Assistance,2 Person Assist Distance (Feet) 5 Able to Maintain Weight Bearing Status Yes During Gait Assistive Devices Assistive Device Gait Belt,Front Wheeled Walker Orthotic/Prosthetic Devices or Brace: No Gait Deviations General Gait Pattern Decreased Stride Length,Wide Based Gait Factors Limiting Gait Function Factors Limiting Gait Function Decreased Activity Tolerance, Incoordination,Poor Safety Awareness Comments Gait Comments Gait 5'x2 with RW. Pt with very wide GEORGE and severely decreased foot clearance and gait is magnetic in presentation. He does not milk pickup driver feet and tries to scoot along the floor. Pt is non- descriptive about symptomology with gait. He states he feels weak but that his arms and legs are not weak. The weakness is related to not being able to move. PT-Balance Assessment Sitting Balance and Reactions Static Sitting Balance Ability Good Dynamic Sitting Balance Ability Good Standing Balance and Reactions Static Standing Balance Ability Fair Dynamic Standing Balance Ability Poor Device Used RW M5 PT-IP Objective Assessments Start: 10/05/23 08:36 Freq: NEEDED Status: Active Protocol: Document 10/05/23 10:02 MB (Rec: 10/05/23 11:10 MB [id number]) Orientation Orientation/Cognition Level of Alertness Alert Orientation Name,Age,Birthday,Month,Place, Situation Language Function Ability Hard of Hearing Safety Awareness Decreased Safety Awareness Memory Description No Deficits Noted Comments Pt is a very poor historian and does not answer any specific questions about symptomology which makes vestibular assessment challenging. LA POSTA is likely biggest culprit. Gross Range of Motion Upper Extremity ROM Assessment Within Functional Limits Lower Extremity ROM Assessment Within Functional Limits Strength Upper Extremity Strength Assessment Within Functional Limits Lower Extremity Strength Assessment Within Functional Limits Comments Strength Comments Extremity strength is grossly normal Coordination Assessment Assessment Coordination Comments Pt has a hard time following commands d/t hearing challenges Sensation Assessment Comments Sensation Comments As above M6 PT-IP Treatment Start: 10/05/23 08:36 Freq: NEEDED Status: Active Protocol: Document 10/05/23 10:02 MB (Rec: 10/05/23 11:10 MB [id number]) Physical Therapy Treatment Education Education Provided Safety Other Treatments Other Treatment Performed Multiple functional activities with checking orthostatics, rolling with Roll Test and other bed mobility, two short gait trials. M7 PT-IP Assessment and Plan Start: 10/05/23 08:36 Freq: NEEDED Status: Active Protocol: Document 10/05/23 10:02 MB (Rec: 10/05/23 11:10 MB [id number]) PT Summary Assessment and Plan Potential Rehabilitation Potential Fair Status of Condition at Evaluation Evolving Summary Impairments Pain,ROM,Balance,Transfers, Gait,Activity Tolerance Progress Towards Goals Slow Progress due to Activity Tolerance Assessment Summary Pt is an 83 y/o male adm to hospital d/t weakness and dizziness after going to bed with upset stomach. He is severely [place] POSTA and does not awaken to PT's loud voice despite wearing right hearing aide. He states that left hearing aide battery is . Pt is a poor historian and does not clearly describe dizziness or symptomology which makes vestibular assessment very challenging. Once again, LA POSTA is a major component of this. PT does not appreciate any spontaneous or movement provoked nystagmus during assessment. This includes a Roll Test and Brandi- Hallpike. Pt has severely reduced cervical rotation to the left and pain with attempted PROM and so he might have some cervicogenic dizziness. Because PT needed to check orthostatics but there was a concern for possible BPPV before it was assessed, PT kept pt in partial upright hook lying at the beginning of treatment to check orthostatics. His systolic BP does drop 10 HHmg with upright hook lying to standing and so it is possible the dropping BP may contribute to symptomology. Similarly with his reports of no real increased dizziness with bed mobility, getting up for orthostatic testing does not directly reproduce his symptoms either. He does ask to sit on the EOB before getting to feet so it is possible that he is just not reporting light-headedness. He has very wide GEORGE and magnetic-type gait. This is more of a central presentation compared to peripheral vestibular. Currently, PT is able to find BP dropping and limited cervical ROM as possible contributors to his symptoms. MRI did report mastoid air cell fluid and pt c/o of his ears being full and so sinus issues may be an issue. He cannot tolerate VOR hypofunction testing today d/t poor neck movement and poor command following with LA POSTA. Recommend ongoing acute and post-acute PT. If he can mobilize better before d/c, he may be able to d/c home with HHPT and 24 hour assistance. If not, he may require SNF. UE and LE strength is grossly equal and normal for age. Goals Bed Mobility Goal Independent Transfer Goal Independent,Front Wheeled Walker Gait Goal Independent,Front Wheel Walker Gait Distance 100 Days to Meet Goals 5 Frequency of Treatment Frequency Of Treatment Once a Day Treatment Plan Physical Therapy Treatment Plan Bed Mobility Training,Transfer Training,Gait Training, Therapeutic Exercise,Balance Retraining,Discharge Planning, Neuromuscular Re-ed Weight Bearing Status Weight Bearing Status Weight Bear as Tolerated Recommendations To Nursing Amount of Assist Needed 2 Person Assist Discharge Recommendations PT Discharge Recommendations Home vs SNF Transportation Needs at Discharge Private Vehicle,Wheelchair/ Cabulance
[2023-10-05] MEDS: MECLIZINE HCL 12.5 MG TABLET PO (16:12)
[2023-10-05] MEDS: SODIUM CHLORIDE 0.9% 1,000 ML 100 ML IV (17:41)
[2023-10-05 20:32] VITALS: BP 124/51; PULSE 71; RESP 16; TEMP 36.7; O2SAT 94
[2023-10-05] MEDS: SENNOSIDES 8.6 MG TABLET 17.2 MG PO (21:11)
[2023-10-06] MEDS: BACLOFEN 10 MG TABLET 5 MG PO ×2 (02:17→14:27)
[2023-10-06] MEDS: ACETAMINOPHEN 325 MG TABLET 650 MG PO ×2 (03:34→09:29)
[2023-10-06 04:43] VITALS: BP 141/56; PULSE 63; RESP 16; TEMP 37.3; O2SAT 96
--- NOTE | 2023-10-06 05:56 | PC.NURSE ---
assistant casino shift manager: Patient is AxOx4, extremely [place], wears hearing aids. Complaints of moderate neck pain that he describes as a muscle spasm, patient states that he has a hx of neck spasms that seem to come and go on it's own, states that he usually just takes Tylenol at home. Tylenol given, not very effective, notified MD Mcnally, 5mg Baclofen ordered & given. IVF infusing as ordered. Patient voids independently with urinal. Complaints of mild vertigo at rest, states that it worsens when standing. Denies N/V. Turns self in bed. SCDs are on. Vital signs are stable. Oriented to call-light, fall precautions in place.
[2023-10-06 06:16] LABS: Add Manual Diff / Slide Review NO; Basophils Absolute Auto 0 /uL (0-100); Basophils Percent Auto 0.4 % (0-2); Eosinophils Absolute Auto 100 /uL (0-450); Eosinophils Percent Auto 1.2 % (2-4); Hemoglobin 8.8 g/dL (13.5-17.5); Lymphocytes Absolute Auto 900 /uL (1100-4500); Lymphocytes Percent Auto 9.7 % (25-40); Mean Corpuscular HGB Conc 33.8 % (30-36); Mean Corpuscular Hemoglobin 29.9 PG (26-34); Mean Corpuscular Volume 88.5 fL (80-100); Monocytes Absolute Auto 1400 /uL (0-900); Monocytes Percent Auto 15.7 % (3-14); Neutrophils Absolute Auto 6400 /uL (1500-7000); Platelet Count 391 X10^3/uL (150-400); Red Blood Cell Count 2.94 X10^6/uL (4.5-5.9); Red Cell Distribution Width 15.4 % (11.6-14.8); White Blood Cell Count 8.8 X10^3/uL (4.5-11.0)
[2023-10-06 06:29] LABS: Alanine Aminotransferase 60 IU/L (<50); Albumin 2.8 g/dL (3.5-5.0); Albumin Globulin Ratio 0.9 (1.0-2.8); Alkaline Phosphatase 103 U/L (38-126); Aspartate Aminotransferase 41 IU/L (17-59); Bilirubin Total 0.8 mg/dL (0.2-1.3); Bilirubin Unconjugated 0.5 mg/dL (0.0-1.1); Globulin 3.1 g/dL (1.7-4.1); HEMOLYSIS < 15 (0-50); Total Protein 5.9 g/dL (6.3-8.2)
[2023-10-06 06:31] LABS: BUN Creatinine Ratio 12.8 (6-22); Blood Urea Nitrogen 10 mg/dL (9-20); Calcium 8.3 mg/dL (8.4-10.2); Carbon Dioxide 23 mmol/L (22-32); Chloride 105 mmol/L (98-107); Estimated Glomerular Filt Rate > 60 mL/min (>60); Glucose 97 mg/dL (80-110); HEMOLYSIS < 15 (0-50); Potassium 3.5 mmol/L (3.4-5.1); Sodium 134 mmol/L (137-145)
[2023-10-06 08:00] VITALS: BP 127/52; PULSE 58; RESP 16; TEMP 36.4; O2SAT 98
[2023-10-06] MEDS: POTASSIUM CHLORIDE 20 MEQ TAB 40 MEQ PO (09:30)
--- NOTE | 2023-10-06 11:12 | OT.IP.EVAL ---
Past Medical History (Last Reviewed 10/04/23 @ 12:39 by Brendan Best MD) Gout Hyperlipidemia Hypertension Type 2 diabetes mellitus Occupational Therapy Inpatient Evaluation/Re-Eval M1 PT/OT-IP Prior Functional Status Start: 10/05/23 08:36 Freq: NEEDED Status: Active Protocol: Document 10/06/23 11:59 CGR (Rec: 10/06/23 12:21 CGR [id number]) Medical Review Prior Functional Status Medical History Reviewed Yes Diet/Fluid Consistency Regular Communication Possibly WNLs when he has two functioning hearing aides in. Pt states that his hearing currently is worse than normal and that he feels like it got worse with the dizziness. He hears better out of his R ear. Mobility and Gait Pt states he was IND prior to the current onset of dizziness . He was boating to go fishing and was able to get in and out of his boat IND. Activities of Daily Living and IADL's Pt states that he was IND prior to the current onset of dizziness and was able to bathe, drive, dress, and perform other ADLs and IADLs without assist. Social History Household Members spouse Living Arrangements House Number of Floors (Floors) One Floor Number of Stairs To Enter/Railing? 1 step and grab bar to enter from garage. Home Environment Standard Height Toilet,Walk in Shower,Built-In Shower Seat Home Equipment Front Wheel Walker,Manual Wheelchair,Raised Toilet Seat w/Armrests,Hand Held Shower Employment Status Retired Additional Social History Comment Pt states he sleeps in a flat bed M2 OT-IP Current Condition Start: 10/06/23 11:58 Freq: Status: Active Protocol: Document 10/06/23 11:59 CGR (Rec: 10/06/23 12:21 CGR [id number]) Occupational Therapy Current Condition Current Condition Evaluation Date 10/06/23 Treatment Diagnosis positional vertigo, increased hearing loss, neck pain Diagnosis Onset Date 10/04/23 M3 OT- IP Subjective and Pain Start: 10/06/23 11:58 Freq: Status: Active Protocol: Document 10/06/23 11:59 CGR (Rec: 10/06/23 12:21 CGR [id number]) OT- Subjective Occupational Therapy Visit Type Type Initial Evaluation Visit Start Time 10:38 Visit Stop Time 11:12 OT Pain Assessment Pain When Pain Assessed At Rest Pain Present Pain Present Pain Reported Location Neck Intensity 2 Scale Used Numeric (0 - 10) Management Techniques Distraction,Modification of Treatment,Re-positioning M4 OT- IP ADL's Start: 10/06/23 11:58 Freq: Status: Active Protocol: Document 10/06/23 11:59 CGR (Rec: 10/06/23 12:21 CGR [id number]) OT [id number] Comments OT Self-Feeding Comments not meal time OT ADL-Grooming General Evaluation Grooming Ability Standby Assistance Areas Needing Assistance Retrieving/Set-up of Grooming Items,Face Washing Comments OT Grooming Comments standing at sink OT ADL-Oral Care General Eval Oral Care Ability Standby Assistance Areas of Assistance Brushing Teeth Comments Oral Care Comments standing at sink OT ADL-Dressing General Eval Lower Body Dressing Ability Independent Areas Needing Assistance Socks Comments OT Dressing Comments seated in chair. Pt states that typically he stands for dressing. Pt was educated on need to sit for dressing given dizziness. OT ADL-Toileting General Evaluation Toileting Ability Independent Comments OT Toileting Comments simulated seated on toilet OT ADL-Bathing Comments OT Bathing Comments not performed M5 OT- IP IADL's Start: 10/06/23 11:58 Freq: Status: Active Protocol: Document 10/06/23 11:59 CGR (Rec: 10/06/23 12:21 CGR [id number]) OT-Instrumental Activities of Daily Living Deficits IADL Deficits Identified Deficits Home Safety Awareness Awareness of Need for Assistance at Home Good Awareness Ability to Problem Solve Emergency Able to Problem Solve Situations Medication Management Medication Management No Deficits Identified Money Management Money Management No Deficits Identified Meal Preparation Meal Preparation Caregiver Provides Assist Body Straightener Body Straightener Caregiver Provides Assist Driving Driving Comments Pt states understanding that he should not drive at this time given his dizziness M6 OT- IP Functional Cognition Start: 10/06/23 11:58 Freq: Status: Active Protocol: Document 10/06/23 11:59 CGR (Rec: 10/06/23 12:21 CGR [id number]) Cognitive Factors Limiting Selfcare Function Cognitive Ability Level of Alertness Alert Patient Orientation Name,Age,Birthday,Month,Date, Year,Day of Week,Place, Situation Attention Span Ability Capable of Focused Attention, Capable of Sustained Attention Ability to Follow Commands Able to Follow One Step Commands with Increased Time, Able to Follow One Step Commands with Repetition Cognitive Comments Cognitive Assessment Comments Pt needed things repeated but appears to be d/t LYTTON OT- Vision and Hearing OT- Hearing Assessment OT- Hearing Assessment Hearing Impaired,Use of Hearing Aids OT- Vision Assessment Visual Acuity Glasses All The Time Visual Attentiveness WFL Occular Pursuits WFL Visual Convergence WFL Vision Assessment Comments No noted nastigmus. Pt without smooth pursuits but able to track. Pt states that tracking does not impact his vision. M7 OT- IP Mobility and Balance Start: 10/06/23 11:58 Freq: Status: Active Protocol: Document 10/06/23 11:59 CGR (Rec: 10/06/23 12:21 CGR [id number]) OT-Transfer Assessment Sit to and From Stand Sit to and from Stand Minimal Assistance Transfers Transfer Ability Minimal Assistance Technique Transfer Destination Chair,Toilet Transfer Technique Stand Step Pivot Devices Transfer Assistive Devices Gait Belt,Front Wheeled Walker Comments Mobility Comments Pt was able to stand and ambulate with hunched posture and progressivly increased weight on the walker. OT- Gait Assessment Gait Gait Assistance Required: Minimum Assistance Assistive Devices Assistive Device Gait Belt,Front Wheeled Walker Comments Gait Ability Comments Chair to sink and toilet then return to chair. OT- Balance Assessment Sitting Balance and Reactions Static Sitting Balance Ability Good Dynamic Sitting Balance Ability Good M8 OT- IP Objective Assessments Start: 10/06/23 11:58 Freq: Status: Active Protocol: Document 10/06/23 11:59 CGR (Rec: 10/06/23 12:21 CGR [id number]) OT Gross Range of Motion Upper Extremity Range of Motion Assessment Within Functional Limits OT Strength Upper Extremity Strength Assessment Within Functional Limits Comments Strength Comments grossly 5/5 OT- Coordination Assessment Upper Extremity Finger to Nose Test Within Functional Limits Finger Tapping Test Within Functional Limits OT-Muscle Tone Assessment Muscle Tone WNL Yes OT Sensation Assessment Edema Edema Absent M9 OT- IP Assessment and Plan Start: 10/06/23 11:58 Freq: Status: Active Protocol: Document 10/06/23 11:59 CGR (Rec: 10/06/23 12:21 CGR [id number]) OT Summary Assessment and Plan Potential Rehabilitation Potential Excellent Analytic Complexity at Evaluation Low Summary OT Impairments Pain,Balance,Functional Mobility,Toilet Transfers, Shower Transfers,Activity Tolerance Progress Towards Goals Slow Progress due to Medical Issues Assessment Summary Pt presents as a low complexity evaluation s/p admit for 1 week of continued dizziness. Pt states he was fine one day then he woke up the next day and was dizzy. Pt is very L[place]TT[place] and can hear better out of his R ear. Pt is now mobilizing with poor posture and a FWW with min a. It is possible for the pt to return home with help using a walker and wheelchair and follow up with a vestibular specialist as outpatient PT. Goals Bathing Goal Independent Toilet Transfer Goal Independent Shower Transfer Goal Independent Days to Meet Goals 3 Frequency of Treatment Frequency Of Treatment Once a Day Treatment Plan OT Treatment Plan ADL Training,Functional Mobility,Patient/Family Education,Discharge Planning Other Treatment Recommendations and Next Shower, home safety with the Treatment Focus walker/ w/c Discharge Recommendations OT Discharge Recommendations Home with Assistance Transportation Needs at Discharge Private Vehicle
--- NOTE | 2023-10-06 12:10 | CM.DPC ---
Addendum entered and electronically signed by RADHA Combs 10/06/23 13:07: [facility] called back, they can accept. Notify them once we know date of d/c. Original Note: DCP Cont. Reviewed EMR and team rounds for status updates. Called and left a message for his that as he did not do very well yesterday with PT w/mobility, and since she has already expressed no preference with which agency, we did fax a referral to [facility], as he is meeting with his new PCP on , 10/08, who will follow after that. Orders placed in EMR for PT, F/F completed and is with facesheet. Cont. to monitor for d/c readiness.
--- NOTE | 2023-10-06 15:13 | PT.IPTN ---
Physical Therapy Treatment Note M2 PT-IP Current Condition Start: 10/05/23 08:36 Freq: NEEDED Status: Active Protocol: Document 10/05/23 10:02 MB (Rec: 10/05/23 11:10 MB [id number]) Physical Therapy Current Condition Current Condition Evaluation Date 10/05/23 Treatment Diagnosis Weakness and dizziness after waking up after upset stomach Onset Date About a week ago per pt M3 PT-IP Subjective Start: 10/05/23 08:36 Freq: NEEDED Status: Active Protocol: Document 10/06/23 14:35 DCW (Rec: 10/06/23 15:13 DCW [id number]) Subjective Physical Therapy Visit Type Type Treatment Note Visit Start Time 14:35 Visit Stop Time 15:00 Physical Therapy Visit Comments Patient Comments Pt hearing slightly better today, able to more accurately answer questions regarding subjective symptoms, still required therapist to loudly yell. M4 PT-IP Mobility and Gait Start: 10/05/23 08:36 Freq: NEEDED Status: Active Protocol: Document 10/06/23 14:35 DCW (Rec: 10/06/23 15:13 DCW [id number]) PT-Bed Mobility Assessment Rolling Level of Assist Standby Assistance Supine to Sit Supine to Sit Standby Assistance,1 Person Assistance,Head of Bed Elevated,Bedrails Sit to Supine Sit to Supine Standby Assistance,1 Person Assistance PT-Transfer Assessment Sit to and From Stand Sit to and from Stand Contact Guard Assistance,1 Person Assistance,Use of Upper Extremities Equipment Transfer Assistive Device Gait Belt,Front Wheeled Walker Transfer Ability Level of Assist Contact Guard Assistance,1 Person Assistance,Use of Upper Extremities Comments Mobility Comments Upon sitting, pt noted vague complaints of maybe gentle rocking. No noted nystagmus. Sitting EOB, pt demonstrating full body tremor, slightly reduced after scooting forward and getting feet on the floor , but still present. Gait Assessment Gait Gait Assistance Required: Minimum Assistance,1 Person Assist Distance (Feet) 15 Assistive Devices Assistive Device Gait Belt,Front Wheeled Walker Orthotic/Prosthetic Devices or Brace: No Gait Deviations General Gait Pattern Decreased Stride Length,Wide Based Gait Comments Gait Comments Got up to ambulate around room , but very quickly noted feeling dizzy and returned to bed. Min A->SBA x1 using FWW, again no notable nystagmus. Improved gait pattern vs yesterday, increased foot clearance. M5 PT-IP Objective Assessments Start: 10/05/23 08:36 Freq: NEEDED Status: Active Protocol: Document 10/06/23 14:35 DCW (Rec: 10/06/23 15:13 DCW [id number]) Orientation Orientation/Cognition Language Function Ability Hard of Hearing M6 PT-IP Treatment Start: 10/05/23 08:36 Freq: NEEDED Status: Active Protocol: Document 10/05/23 10:02 MB (Rec: 10/05/23 11:10 MB [id number]) Physical Therapy Treatment Education Education Provided Safety Other Treatments Other Treatment Performed Multiple functional activities with checking orthostatics, rolling with Roll Test and other bed mobility, two short gait trials. M7 PT-IP Assessment and Plan Start: 10/05/23 08:36 Freq: NEEDED Status: Active Protocol: Document 10/06/23 14:35 DCW (Rec: 10/06/23 15:13 DCW [id number]) PT Summary Assessment and Plan Summary Impairments Pain,ROM,Balance,Transfers, Gait,Activity Tolerance Progress Towards Goals Slow Progress due to Activity Tolerance Assessment Summary Pt does not demonstrate any notable objective symptoms of vestibular dysfunction. Does note worsening hearing compared to a few days ago, which could suggest inner ear involvement. Pt still not very safe or stable in standing or with gait, may still benefit from d/c to SNF if unsafe to return home. May benefit from referral to ENT for further VNG testing to more accurately determine bilateral inner ear functionality. Goals Bed Mobility Goal Independent Transfer Goal Independent,Front Wheeled Walker Gait Goal Independent,Front Wheel Walker Gait Distance 100 Days to Meet Goals 5 Frequency of Treatment Frequency Of Treatment Once a Day Treatment Plan Physical Therapy Treatment Plan Bed Mobility Training,Transfer Training,Gait Training, Therapeutic Exercise,Balance Retraining,Discharge Planning, Neuromuscular Re-ed Weight Bearing Status Weight Bearing Status Weight Bear as Tolerated Recommendations To Nursing Amount of Assist Needed 1 Person Assist Discharge Recommendations PT Discharge Recommendations Home vs SNF Transportation Needs at Discharge Private Vehicle,Wheelchair/ Cabulance
[2023-10-06 16:00] VITALS: BP 152/57; PULSE 75; RESP 16; TEMP 36.7; O2SAT 99
--- NOTE | 2023-10-06 16:36 | P.PN_ITS ---
Subjective Subjective Interval history: This is an 83 year old male admitted with dizziness upon standing. He continues to struggle with ambulation due to dizziness. He is improving, but very slowly. He remains much diminished from baseline without much improvement. Will increase meclizine dose today, continues to hold home BP medications. Exam Vital Signs (past 8 hours): - 10/06/23 09:29 Oxygen Delivery Method Room Air Oxygen Delivery Method Room Air Oxygen Flow Rate 0 Narrative Exam Narrative: NAD, alert and oriented. Fluent speech. Lungs are clear, normal rate and effort. Heart is regular, no murmur gallop or rub. Abdomen is soft, non distended. Extremities are free of edema. He is sitting in a chair and can stand with assistance. He has a very wide- based unstable stance. Objective Labs 10/06/23 05:40 10/06/23 05:40 Labs: Laboratory Results - last 24 hr 10/06/23 05:40 WBC 8.8 RBC 2.94 L Hgb 8.8 L Hct 26.0 L MCV 88.5 MCH 29.9 MCHC 33.8 RDW 15.4 H Plt Count 391 Neut % (Auto) 73.0 Lymph % (Auto) 9.7 L [place] % (Auto) 15.7 H Eos % (Auto) 1.2 L Baso % (Auto) 0.4 Neut # (Auto) 6400 Lymph # (Auto) 900 L [place] # (Auto) 1400 H Eos # (Auto) 100 Baso # (Auto) 0 Sodium 134 L Potassium 3.5 Chloride 105 Carbon Dioxide 23 BUN 10 Creatinine 0.78 Estimated GFR > 60 BUN/Creatinine Ratio 12.8 Glucose 97 Calcium 8.3 L Total Bilirubin 0.8 Conjugated Bilirubin 0.0 Unconjugated Bilirubin 0.5 AST 41 ALT 60 H Alkaline Phosphatase 103 Total Protein 5.9 L Albumin 2.8 L Globulin 3.1 Albumin/Globulin Ratio 0.9 L [facility] Medical History Gout Hypertension Hyperlipidemia Type 2 diabetes mellitus Social History household members: spouse Smoking Status: Former smoker alcohol intake: former Assessment & Plan Assessment & Plan narrative: 1. Vertigo, present on admission and active. 2. New anemia, present on admission and active. 3. Possible pulmonary edema, improved 4. Hypertension, present on admission and active. 5. Hyperlipidemia, present on admission and active. 6. Type 2 diabetes, present on admission and active. 7. Iron deficiency with total iron of 22, TIBC of 151, % saturation of 15, transferrin 99. PLAN: - etiology is not entirely unclear, but persistent dizziness remains. May be related to BPPV but no signs on exam. - increase meclizine - antibiotics were given initially but no ongoing signs of infection but now off antibiotics. - continue to hold home antihypertensives. - orthostatics qshift until negative - outpatient endoscopy recommended for iron deficiency anemia. - continue PT/OT, consider vestibular therapy if necessary. - echo with diastolic dysfunction, but no signficant valvular pathologies. No diuresis recommended currently. Code: Full, surrogate is patient's spouse Dispo: inpatient with persistent dizziness limiting patient's ability to perform ADLs. Possible SNF depending on therapy evaluations over the coming days. Time Spent With Patient Time with patient: 30 to 49 minutes with 50% spent counseling/coordinating care Quality VTE Deep Vein Thrombosis/Pulmonary Embolism Present on Admission: No
[2023-10-06] MEDS: METFORMIN HCL 500 MG TABLET PO (17:40)
[2023-10-07 03:15] VITALS: BP 129/54; BP 137/56; BP 148/43; PULSE 60; PULSE 73; PULSE 76
[2023-10-07] MEDS: ACETAMINOPHEN 325 MG TABLET 650 MG PO ×2 (03:56→21:14)
[2023-10-07 04:12] VITALS: BP 131/49; PULSE 61; RESP 16; TEMP 36.6; O2SAT 97
[2023-10-07 04:14] VITALS: BP 113/55; BP 131/49; BP 99/43; PULSE 62; PULSE 69; PULSE 79
[2023-10-07 04:34] LABS: Add Manual Diff / Slide Review NO; Basophils Absolute Auto 100 /uL (0-100); Basophils Percent Auto 0.8 % (0-2); Eosinophils Absolute Auto 100 /uL (0-450); Eosinophils Percent Auto 0.9 % (2-4); Hematocrit 26.3 % (41-53); Lymphocytes Absolute Auto 1300 /uL (1100-4500); Lymphocytes Percent Auto 11.6 % (25-40); Mean Corpuscular HGB Conc 34.3 % (30-36); Mean Corpuscular Hemoglobin 30.3 PG (26-34); Mean Corpuscular Volume 88.2 fL (80-100); Monocytes Absolute Auto 1800 /uL (0-900); Monocytes Percent Auto 16.4 % (3-14); Neutrophils Absolute Auto 7600 /uL (1500-7000); Neutrophils Percent Auto 70.3 % (50-75); Platelet Count 436 X10^3/uL (150-400); Red Blood Cell Count 2.98 X10^6/uL (4.5-5.9); Red Cell Distribution Width 15.4 % (11.6-14.8); White Blood Cell Count 10.8 X10^3/uL (4.5-11.0)
[2023-10-07 05:34] LABS: Blood Urea Nitrogen 10 mg/dL (9-20); Calcium 8.4 mg/dL (8.4-10.2); Carbon Dioxide 23 mmol/L (22-32); Chloride 107 mmol/L (98-107); Estimated Glomerular Filt Rate > 60 mL/min (>60); Glucose 107 mg/dL (80-110); HEMOLYSIS < 15 (0-50); Potassium 4.1 mmol/L (3.4-5.1); Sodium 136 mmol/L (137-145)
--- NOTE | 2023-10-07 09:05 | PT.IPTN ---
Current Diagnoses Dizziness and giddiness (10/06/23) Physical Therapy Treatment Note M2 PT-IP Current Condition Start: 10/05/23 08:36 Freq: NEEDED Status: Active Protocol: Document 10/05/23 10:02 MB (Rec: 10/05/23 11:10 MB [id number]) Physical Therapy Current Condition Current Condition Evaluation Date 10/05/23 Treatment Diagnosis Weakness and dizziness after waking up after upset stomach Onset Date About a week ago per pt M3 PT-IP Subjective Start: 10/05/23 08:36 Freq: NEEDED Status: Active Protocol: Document 10/07/23 09:34 TS (Rec: 10/07/23 09:52 TS [id number]) Subjective Physical Therapy Visit Type Type Treatment Note Visit Start Time 09:05 Visit Stop Time 09:30 Number of FURNITURE DIPPER Visits 1 Physical Therapy Visit Comments Patient Comments Pt found resting in bed, continues to report dizziness with bed mobility and gait. pt would like to go home, is open to SNF if needed. M4 PT-IP Mobility and Gait Start: 10/05/23 08:36 Freq: NEEDED Status: Active Protocol: Document 10/07/23 09:34 TS (Rec: 10/07/23 09:52 TS [id number]) PT-Bed Mobility Assessment Rolling Level of Assist Standby Assistance Supine to Sit Supine to Sit Standby Assistance,1 Person Assistance,Head of Bed Elevated,Bedrails Sit to Supine Sit to Supine Standby Assistance,1 Person Assistance PT-Transfer Assessment Sit to and From Stand Sit to and from Stand Standby Assistance,Contact Guard Assistance,1 Person Assistance,Use of Upper Extremities Equipment Transfer Assistive Device Gait Belt,Front Wheeled Walker Orthotic/Prosthetic Devices or Brace: No Comments Mobility Comments Supine to sit SBA with HOB elevated and BUE support, pt reports dizziness. STS from bed CGA, pt required cues for BUE support pushing from bed, he continues to report dizziness. Pt ambulated in room ~80' CGA/SBA, he is unsteady but has no buckling or LOB, pt continues to report dizziness and could potentially fall. STS from chair SBA wth use of FWW. He performed steps x2 CGA on step stool with use of single grab bar. Pt was left back in chair with breakfast, all needs met. Gait Assessment Gait Gait Assistance Required: Standby Assistance,Contact Guard Assist,1 Person Assist Distance (Feet) 80 Able to Maintain Weight Bearing Status Yes During Gait Assistive Devices Assistive Device Gait Belt,Front Wheeled Walker Orthotic/Prosthetic Devices or Brace: No Gait Deviations General Gait Pattern Decreased Stride Length,Wide Based Gait Factors Limiting Gait Function Factors Limiting Gait Function Decreased Activity Tolerance, Incoordination,Poor Safety Awareness Comments Gait Comments See mobility comments Stair Climbing Assessment Evaluation Level of Assist On Stairs Standby Assistance Devices Stair Climbing Assistive Devices Left Railing Technique/Endurance Stair Climbing Direction Ascend and Descend Stair Climbing Technique Step to Step Number of Steps Climbed 2 Comments Stair Climbing Comments See mobility comments PT-Balance Assessment Sitting Balance and Reactions Static Sitting Balance Ability Good Dynamic Sitting Balance Ability Good Standing Balance and Reactions Static Standing Balance Ability Fair Dynamic Standing Balance Ability Poor Device Used RW M5 PT-IP Objective Assessments Start: 10/05/23 08:36 Freq: NEEDED Status: Active Protocol: Document 10/06/23 14:35 DCW (Rec: 10/06/23 15:13 DCW [id number]) Orientation Orientation/Cognition Language Function Ability Hard of Hearing M6 PT-IP Treatment Start: 10/05/23 08:36 Freq: NEEDED Status: Active Protocol: Document 10/07/23 09:34 TS (Rec: 10/07/23 09:52 TS [id number]) Physical Therapy Treatment Education Education Provided Safety M7 PT-IP Assessment and Plan Start: 10/05/23 08:36 Freq: NEEDED Status: Active Protocol: Document 10/07/23 09:34 TS (Rec: 10/07/23 09:52 TS [id number]) PT Summary Assessment and Plan Potential Rehabilitation Potential Fair Summary Impairments Pain,ROM,Balance,Transfers, Gait,Activity Tolerance Progress Towards Goals Progressing Toward Goals Assessment Summary Jama is making some progress with his mobility this session . He is SBA for all bed mobility with HOB elevated. He performed STS x1CGA and x1SBA with FWW, does requiring some cueing for technique and safety, pt tips FWW. He progressed his gait to ~80'CGA /SBA with FWW. He is usnteady but does not have any buckling or LOB. He continues to report dizziness throughout session. He progressed to stairs x2 CGA with use of single grab bat. PT continues to recommend Home vs SNF at this time. Pt could benefit from SNF to improve weakness before d/c home. May benefit from referral to ENT for further VNG testing to more accurately determine bilateral inner ear functionality. Goals Bed Mobility Goal Independent Transfer Goal Independent,Front Wheeled Walker Gait Goal Independent,Front Wheel Walker Gait Distance 100 Days to Meet Goals 5 Frequency of Treatment Frequency Of Treatment Once a Day Treatment Plan Physical Therapy Treatment Plan Bed Mobility Training,Transfer Training,Gait Training, Therapeutic Exercise,Balance Retraining,Discharge Planning, Neuromuscular Re-ed Weight Bearing Status Weight Bearing Status Weight Bear as Tolerated Recommendations To Nursing Amount of Assist Needed 1 Person Assist Discharge Recommendations PT Discharge Recommendations Home vs SNF Transportation Needs at Discharge Private Vehicle,Wheelchair/ Cabulance
[2023-10-07] MEDS: METFORMIN HCL 500 MG TABLET PO ×2 (10:06→18:50)
--- NOTE | 2023-10-07 11:18 | OT.IP.TRT ---
Current Diagnoses Dizziness and giddiness (10/06/23) Occupational Therapy Treatment Note M2 OT-IP Current Condition Start: 10/06/23 11:58 Freq: Status: Active Protocol: Document 10/06/23 11:59 CGR (Rec: 10/06/23 12:21 CGR [id number]) Occupational Therapy Current Condition Current Condition Evaluation Date 10/06/23 Treatment Diagnosis positional vertigo, increased hearing loss, neck pain Diagnosis Onset Date 10/04/23 M3 OT- IP Subjective and Pain Start: 10/06/23 11:58 Freq: Status: Active Protocol: Document 10/07/23 11:17 CCC (Rec: 10/07/23 11:26 CCC [id number]) OT- Subjective Occupational Therapy Visit Type Type Treatment Note Visit Start Time 10:55 Visit Stop Time 11:18 Occupational Therapy Visit Comments Patient Comments Pt agreed tp get up to do grooming needs. Patient/Caregiver Goals To get better. OT Pain Assessment Pain When Pain Assessed At Rest Pain Present Pain Present Denied Pain M4 OT- IP ADL's Start: 10/06/23 11:58 Freq: Status: Active Protocol: Document 10/07/23 11:17 CCC (Rec: 10/07/23 11:26 CCC [id number]) OT DVF-Ayof-Yeurful Comments OT Self-Feeding Comments NO issues anticipated. OT ADL-Grooming General Evaluation Grooming Ability Standby Assistance Areas Needing Assistance Retrieving/Set-up of Grooming Items,Face Washing Comments OT Grooming Comments Able to stand with FWW. VC to get closer to the sink when standing. OT ADL-Oral Care Comments Oral Care Comments standing at sink OT ADL-Dressing General Eval Lower Body Dressing Ability Independent Areas Needing Assistance Socks Comments OT Dressing Comments Pt able to blake/doff his socks while seated without getting dizzy at this time. OT ADL-Toileting Comments OT Toileting Comments Pt not having to go at this time. OT ADL-Bathing Comments OT Bathing Comments not performed M5 OT- IP IADL's Start: 10/06/23 11:58 Freq: Status: Active Protocol: Document 10/06/23 11:59 CGR (Rec: 10/06/23 12:21 CGR [id number]) OT-Instrumental Activities of Daily Living Deficits IADL Deficits Identified Deficits Home Safety Awareness Awareness of Need for Assistance at Home Good Awareness Ability to Problem Solve Emergency Able to Problem Solve Situations Medication Management Medication Management No Deficits Identified Money Management Money Management No Deficits Identified Meal Preparation Meal Preparation Caregiver Provides Assist Print Designer Print Designer Caregiver Provides Assist Driving Driving Comments Pt states understanding that he should not drive at this time given his dizziness M6 OT- IP Functional Cognition Start: 10/06/23 11:58 Freq: Status: Active Protocol: Document 10/07/23 11:17 [facility] (Rec: 10/07/23 11:26 [facility] [id number]) Cognitive Factors Limiting Selfcare Function Cognitive Comments Cognitive Assessment Comments Pt needing safety cues to have the FWW closer to him while walking as pt has the FWW too far in front of him. OT- Vision and Hearing OT- Vision Assessment Vision Assessment Comments Intact M7 OT- IP Mobility and Balance Start: 10/06/23 11:58 Freq: Status: Active Protocol: Document 10/07/23 11:17 [facility] (Rec: 10/07/23 11:26 [facility] [id number]) OT-Transfer Assessment Sit to and From Stand Sit to and from Stand Contact Guard Assistance Transfers Transfer Ability Standby Assistance,Contact Guard Assistance Technique Transfer Destination Chair Transfer Technique Stand Step Pivot Devices Transfer Assistive Devices Gait Belt,Front Wheeled Walker Comments Mobility Comments Pt needing extra time after standing to collect himself and to let his dizziness pass. Pt heavy use of his hands on the FWW which is far from his baseline of being able to walk his dog twice prior without a device. OT- Balance Assessment Sitting Balance and Reactions Static Sitting Balance Ability Normal Dynamic Sitting Balance Ability Good Standing Balance and Reactions Static Standing Balance Ability Fair Dynamic Standing Balance Ability Poor M8 OT- IP Objective Assessments Start: 10/06/23 11:58 Freq: Status: Active Protocol: Document 10/06/23 11:59 CGR (Rec: 10/06/23 12:21 CGR [id number]) OT Gross Range of Motion Upper Extremity Range of Motion Assessment Within Functional Limits OT Strength Upper Extremity Strength Assessment Within Functional Limits Comments Strength Comments grossly 5/5 OT- Coordination Assessment Upper Extremity Finger to Nose Test Within Functional Limits Finger Tapping Test Within Functional Limits OT-Muscle Tone Assessment Muscle Tone WNL Yes OT Sensation Assessment Edema Edema Absent M9 OT- IP Assessment and Plan Start: 10/06/23 11:58 Freq: Status: Active Protocol: Document 10/07/23 11:17 [facility] (Rec: 10/07/23 11:26 CCC [id number]) OT Summary Assessment and Plan Potential Rehabilitation Potential Excellent Analytic Complexity at Evaluation Low Summary OT Impairments Pain,Balance,Functional Mobility,Toilet Transfers, Shower Transfers,Activity Tolerance Progress Towards Goals Slow Progress due to Medical Issues Assessment Summary Pt still far from his baseline of no use of FWW and able to walk his dog and do all his ADL needs independently. Pt would benefit from short rehab stay. Goals Dressing Goal Independent Toileting Goal Independent Bathing Goal Independent Toilet Transfer Goal Independent Shower Transfer Goal Independent Days to Meet Goals 7 Frequency of Treatment Frequency Of Treatment Once a Day Treatment Plan OT Treatment Plan ADL Training,Functional Mobility,Patient/Family Education,Discharge Planning Other Treatment Recommendations and Next Shower, home safety with the Treatment Focus walker/ w/c Discharge Recommendations OT Discharge Recommendations SNF Rehab,Home vs SNF Transportation Needs at Discharge Private Vehicle
[2023-10-07 12:00] VITALS: BP 135/54; PULSE 62; RESP 20; TEMP 36.3; O2SAT 100
[2023-10-07] MEDS: INSULIN LISPRO 100 UNIT/ML 3ML VIAL SUBCUT (12:19)
[2023-10-07 14:00] VITALS: BP 122/48; BP 123/56; BP 149/54; PULSE 62; PULSE 63; PULSE 87
--- NOTE | 2023-10-07 14:03 | CM.DPC ---
DCP Cont. Reviewed EMR and team rounds for status updates. [facility] facility rehab is recommended from PT/OT as pt is not yet near his baseline to return home as independent status. Called pt's , Reyna, re: SNF preference, and offered teaching/information re: DME questions once he's discharged from rehab. Per her request, sent referral to [facility] in [place] for review. Will f/u first thing tomorrow morning re: their decision, and will update pt's re: final plan.
--- NOTE | 2023-10-07 14:53 | PM.PN.1 ---
Subjective Subjective Interval history: This is an 83 year old male admitted with dizziness upon standing. He continues to struggle with ambulation due to dizziness. He is improving, but very slowly. He remains much diminished from baseline without much improvement. Will increase meclizine dose today, continues to hold home BP medications. His orthostatic vitals are positive. Exam Vital Signs (past 8 hours): - 10/07/23 12:00 10/07/23 14:00 Temperature 97.3 F L Pulse Rate 62 Pulse Rate [Orthostatic Lying] 63 Pulse Rate [Orthostatic Sitting] 62 Pulse Rate [Orthostatic Standing] 87 Respiratory Rate 20 Blood Pressure 135/54 L Blood Pressure [Orthostatic Lying] 149/54 H Blood Pressure [Orthostatic Sitting] 122/48 L Blood Pressure [Orthostatic Standing] 123/56 L Pulse Oximetry 100 Oxygen Flow Rate 0 Oxygen Delivery Method Room Air Oxygen Flow Rate 0 Narrative Exam Narrative: NAD, alert and oriented. Fluent speech. Lungs are clear, normal rate and effort. Heart is regular, no murmur gallop or rub. Abdomen is soft, non distended. Extremities are free of edema. He is sitting in a chair and can stand with assistance. He has a very wide-based unstable stance. Objective Labs 10/07/23 04:14 10/07/23 04:14 Labs: Laboratory Results - last 24 hr 10/07/23 04:14 WBC 10.8 RBC 2.98 L Hgb 9.0 L Hct 26.3 L MCV 88.2 MCH 30.3 MCHC 34.3 RDW 15.4 H Plt Count 436 H Neut % (Auto) 70.3 Lymph % (Auto) 11.6 L [place] % (Auto) 16.4 H Eos % (Auto) 0.9 L Baso % (Auto) 0.8 Neut # (Auto) 7600 H Lymph # (Auto) 1300 [place] # (Auto) 1800 H Eos # (Auto) 100 Baso # (Auto) 100 Sodium 136 L Potassium 4.1 Chloride 107 Carbon Dioxide 23 BUN 10 Creatinine 0.83 Estimated GFR > 60 BUN/Creatinine Ratio 12.0 Glucose 107 Calcium 8.4 PFSH Medical History Gout Hypertension Hyperlipidemia Type 2 diabetes mellitus Social History household members: spouse Smoking Status: Former smoker alcohol intake: former Assessment & Plan Assessment & Plan narrative: 1. Vertigo with orthostatic hypotension present on admission and active. 2. New anemia, present on admission and active. 3. Possible pulmonary edema, improved 4. Hypertension, present on admission and active. 5. Hyperlipidemia, present on admission and active. 6. Type 2 diabetes, present on admission and active. 7. Iron deficiency with total iron of 22, TIBC of 151, % saturation of 15, transferrin 99. PLAN: - symptoms likely do to orthostatic hypotension. Drops >20 points with standing. Trial low dose midodrine 2.5 mg TID today. - antibiotics were given initially but no ongoing signs of infection but now off antibiotics. - continue to hold home antihypertensives. - orthostatics qshift until negative - outpatient endoscopy recommended for iron deficiency anemia. - continue PT/OT - echo with diastolic dysfunction, but no signficant valvular pathologies. No diuresis recommended currently. Code: Full, surrogate is patient's spouse Dispo: inpatient with persistent dizziness limiting patient's ability to perform ADLs. Possible SNF depending on therapy evaluations over the coming days and / or improvement with midodrine trial today. Time Spent With Patient Time with patient: 30 to 49 minutes with 50% spent counseling/coordinating care Quality VTE Deep Vein Thrombosis/Pulmonary Embolism Present on Admission: No
[2023-10-07] MEDS: MIDODRINE HCL 5 MG TABLET 2.5 MG PO (18:50)
[2023-10-07 20:00] VITALS: BP 162/53; PULSE 64; RESP 17; TEMP 35.9; O2SAT 97
[2023-10-07] MEDS: SENNOSIDES 8.6 MG TABLET 17.2 MG PO (21:14)
[2023-10-08 03:19] VITALS: BP 148/43; PULSE 60; RESP 16; TEMP 36; O2SAT 99
[2023-10-08] MEDS: MIDODRINE HCL 5 MG TABLET 2.5 MG PO ×3 (05:28→17:05)
[2023-10-08] MEDS: METFORMIN HCL 500 MG TABLET PO ×2 (08:28→17:05)
--- NOTE | 2023-10-08 08:58 | PT.IPTN ---
Current Diagnoses Dizziness and giddiness (10/06/23) Physical Therapy Treatment Note M2 PT-IP Current Condition Start: 10/05/23 08:36 Freq: NEEDED Status: Active Protocol: Document 10/05/23 10:02 MB (Rec: 10/05/23 11:10 MB [id number]) Physical Therapy Current Condition Current Condition Evaluation Date 10/05/23 Treatment Diagnosis Weakness and dizziness after waking up after upset stomach Onset Date About a week ago per pt M3 PT-IP Subjective Start: 10/05/23 08:36 Freq: NEEDED Status: Active Protocol: Document 10/08/23 09:29 TS (Rec: 10/08/23 09:42 TS [id number]) Subjective Physical Therapy Visit Type Type Treatment Note Visit Start Time 08:58 Visit Stop Time 09:27 Number of POLISHER AND BUFFER Visits 2 Physical Therapy Visit Comments Patient Comments Pt found resting in bed, reports continued dizziness when he sits up in bed and with ambulation. Pt is agreeable to PT. M4 PT-IP Mobility and Gait Start: 10/05/23 08:36 Freq: NEEDED Status: Active Protocol: Document 10/08/23 09:29 TS (Rec: 10/08/23 09:42 TS [id number]) PT-Bed Mobility Assessment Supine to Sit Supine to Sit Standby Assistance,1 Person Assistance,Head of Bed Elevated,Bedrails Scooting Scooting to Edge of Bed Standby Assistance PT-Transfer Assessment Sit to and From Stand Sit to and from Stand Minimal Assistance,1 Person Assistance Equipment Transfer Assistive Device Gait Belt,Front Wheeled Walker Orthotic/Prosthetic Devices or Brace: No Comments Mobility Comments BP in supine 146/47 prior to mobility. Supine to sit from flat bed SBA with BUE spport, pt reports dizziness and feel shaky. BP in sitting 142/49, pt continues to report dizziness. STS from bed Juan for balance/posterior lean with FWW, BP in standing 115/ 54, pt continues to report dizziness. He ambulated in room ~30'CGA with slow gait and dizziness. BP taken again in standing 109/48. Pt requested to sit in chair, STS from bed Juan with FWW, pt continues to have a posterior lean. Pt was left in chair with alarm on, all needs met. Gait Assessment Gait Gait Assistance Required: Standby Assistance,Contact Guard Assist,1 Person Assist Distance (Feet) 30 Able to Maintain Weight Bearing Status Yes During Gait Assistive Devices Assistive Device Gait Belt,Front Wheeled Walker Orthotic/Prosthetic Devices or Brace: No Gait Deviations General Gait Pattern Decreased Stride Length,Wide Based Gait Factors Limiting Gait Function Factors Limiting Gait Function Decreased Activity Tolerance, Incoordination,Poor Safety Awareness Comments Gait Comments See mobility comments PT-Balance Assessment Sitting Balance and Reactions Static Sitting Balance Ability Normal Dynamic Sitting Balance Ability Good Standing Balance and Reactions Static Standing Balance Ability Fair Dynamic Standing Balance Ability Fair Device Used RW M5 PT-IP Objective Assessments Start: 10/05/23 08:36 Freq: NEEDED Status: Active Protocol: Document 10/06/23 14:35 DCW (Rec: 10/06/23 15:13 DCW [id number]) Orientation Orientation/Cognition Language Function Ability Hard of Hearing M6 PT-IP Treatment Start: 10/05/23 08:36 Freq: NEEDED Status: Active Protocol: Document 10/08/23 09:29 TS (Rec: 10/08/23 09:42 TS [id number]) Physical Therapy Treatment Education Education Provided Safety M7 PT-IP Assessment and Plan Start: 10/05/23 08:36 Freq: NEEDED Status: Active Protocol: Document 10/08/23 09:29 TS (Rec: 10/08/23 09:42 TS [id number]) PT Summary Assessment and Plan Potential Rehabilitation Potential Fair Summary Impairments Pain,ROM,Balance,Transfers, Gait,Activity Tolerance Progress Towards Goals Progressing Toward Goals Assessment Summary Jama continues to be SBA for all bed mobility from a flat bed. He performed STS x2 uJan for balance and posterior leaning. He continues to ambulate short distances in room with FWW and fair balance . He continues to be dizzy when sitting up in bed and while ambulating with FWW. He does appear to be orthostatic and does report symptoms, see vitals in mobility comments. PT continues to recommend SNF vs Home at this time. May benefit from referral to ENT for further VNG testing to more accurately determine bilateral inner ear functionality. Goals Bed Mobility Goal Independent Transfer Goal Independent,Front Wheeled Walker Gait Goal Independent,Front Wheel Walker Gait Distance 100 Days to Meet Goals 5 Frequency of Treatment Frequency Of Treatment Once a Day Treatment Plan Physical Therapy Treatment Plan Bed Mobility Training,Transfer Training,Gait Training, Therapeutic Exercise,Balance Retraining,Discharge Planning, Neuromuscular Re-ed Weight Bearing Status Weight Bearing Status Weight Bear as Tolerated Recommendations To Nursing Amount of Assist Needed 1 Person Assist Discharge Recommendations PT Discharge Recommendations Home Health,Outpatient PT,Home vs SNF Transportation Needs at Discharge Private Vehicle,Wheelchair/ Cabulance
[2023-10-08 09:00] VITALS: BP 131/42; PULSE 52; RESP 16; O2SAT 97
[2023-10-08 10:00] VITALS: BP 109/48; BP 142/49; BP 146/47; PULSE 60; PULSE 67; PULSE 92
[2023-10-08] MEDS: MECLIZINE HCL 12.5 MG TABLET 25 MG PO (10:17)
--- NOTE | 2023-10-08 11:30 | OT.IP.TRT ---
Current Diagnoses Dizziness and giddiness (10/06/23) Occupational Therapy Treatment Note M2 OT-IP Current Condition Start: 10/06/23 11:58 Freq: Status: Active Protocol: Document 10/06/23 11:59 CGR (Rec: 10/06/23 12:21 CGR [id number]) Occupational Therapy Current Condition Current Condition Evaluation Date 10/06/23 Treatment Diagnosis positional vertigo, increased hearing loss, neck pain Diagnosis Onset Date 10/04/23 M3 OT- IP Subjective and Pain Start: 10/06/23 11:58 Freq: Status: Active Protocol: Document 10/08/23 11:03 CCC (Rec: 10/08/23 12:28 CCC [id number]) OT- Subjective Occupational Therapy Visit Type Type Treatment Note Visit Start Time 11:03 Visit Stop Time 11:30 Occupational Therapy Visit Comments Patient Comments Pt agreed to do cognitive assessment and feels that he is not thinking well. Patient/Caregiver Goals To get better. OT Pain Assessment Pain When Pain Assessed At Rest Pain Present Pain Present Denied Pain M6 OT- IP Functional Cognition Start: 10/06/23 11:58 Freq: Status: Active Protocol: Document 10/08/23 11:03 [facility] (Rec: 10/08/23 12:28 [facility] [id number]) Cognitive Factors Limiting Selfcare Function Cognitive Ability Level of Alertness Alert Patient Orientation Name,Age,Birthday,Month,Date, Year,Day of Week,Place, Situation Attention Span Ability Capable of Focused Attention, Capable of Sustained Attention Ability to Follow Commands Able to Follow One Step Commands with Increased Time, Able to Follow One Step Commands with Repetition Memory Description Short Term Impaired,Working Impaired Cognitive Tests SLUMS 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 Pt able to recall 3/5 objects after time passed, pt not able to draw the number on the clock accurately or draw the hour hands, and able to answer 3/4 questions right after paragraph read. Cognitive Comments Cognitive Assessment Comments Pt scored 254 seconds on [place] [employer] Part B which implies severe impairments for visual attention, speed of processing, mental flexibility, executive functioning, and task switching . Pt per is far from his cognitive baseline as was out driving and fishing last week. OT- Vision and Hearing OT- Vision Assessment Vision Assessment Comments Intact OT- Balance Assessment Sitting Balance and Reactions Static Sitting Balance Ability Normal Dynamic Sitting Balance Ability Good Standing Balance and Reactions Static Standing Balance Ability Fair Dynamic Standing Balance Ability Poor M8 OT- IP Objective Assessments Start: 10/06/23 11:58 Freq: Status: Active Protocol: Document 10/06/23 11:59 CGR (Rec: 10/06/23 12:21 CGR [id number]) OT Gross Range of Motion Upper Extremity Range of Motion Assessment Within Functional Limits OT Strength Upper Extremity Strength Assessment Within Functional Limits Comments Strength Comments grossly 5/5 OT- Coordination Assessment Upper Extremity Finger to Nose Test Within Functional Limits Finger Tapping Test Within Functional Limits OT-Muscle Tone Assessment Muscle Tone WNL Yes OT Sensation Assessment Edema Edema Absent M9 OT- IP Assessment and Plan Start: 10/06/23 11:58 Freq: Status: Active Protocol: Document 10/08/23 11:03 CCC (Rec: 10/08/23 12:28 CCC [id number]) OT Summary Assessment and Plan Potential Rehabilitation Potential Excellent Analytic Complexity at Evaluation Low Summary OT Impairments Pain,Balance,Functional Cognition,Functional Mobility, Toilet Transfers,Shower Transfers,Activity Tolerance Progress Towards Goals Slow Progress due to Medical Issues Assessment Summary Able to do formal cognitive assessment and pt scored 22/30 on the SLUMS which implies mild neurocognitive deficits. Pt needing increased time to problem solving and difficulty with his short term memory. Pt per is far from his baseline and looking to go to skilled rehab when medically stable Goals Grooming Goal Independent Dressing Goal Independent Toileting Goal Independent Bathing Goal Independent Toilet Transfer Goal Independent Shower Transfer Goal Independent Days to Meet Goals 15 Frequency of Treatment Frequency Of Treatment Once a Day Treatment Plan OT Treatment Plan ADL Training,Functional Mobility,Patient/Family Education,Discharge Planning Other Treatment Recommendations and Next Shower, home safety with the Treatment Focus walker/ w/c Discharge Recommendations OT Discharge Recommendations SNF Rehab Transportation Needs at Discharge Private Vehicle,Wheelchair/ Cabulance
--- NOTE | 2023-10-08 11:56 | CM.DPC ---
DCP Cont. Reviewed EMR and team rounds for status updates. Pt continues to be very orthostatic with any attempts at being upright. Met with pt's and dtr to discuss d/c plan for when pt is medically cleared. [facility] does accept, family will plan to transport him privately. Called [facility] and updated them that he's not ready to d/c today, but hopefully tomorrow. Will continue to monitor closely.
[2023-10-08] MEDS: SODIUM CHLORIDE 0.9% 1,000 ML 1000 ML IV (11:57)
[2023-10-08 13:16] VITALS: BP 132/49; BP 152/49; PULSE 63; PULSE 70
--- NOTE | 2023-10-08 13:17 | PC.NURSE ---
after 1L of bolus BP sitting 152/49, standing 132/49
[2023-10-08] MEDS: SODIUM CHLORIDE 0.9% 1,000 ML 125 ML IV ×2 (14:48→23:10)
--- NOTE | 2023-10-08 15:47 | PM.PN.1 ---
Subjective Subjective Interval history: Met with patient, and daughter at bedside. All questions where answered. He is improving slowly and is able to now walk but is still unsteady. Still orthostatic so 1L bolus ordered with improvement in orthostasis. Exam Vital Signs (past 8 hours): - 10/08/23 09:00 10/08/23 10:00 10/08/23 13:16 Pulse Rate 52 L Pulse Rate [Orthostatic Lying] 60 Pulse Rate [Orthostatic Sitting] 67 63 Pulse Rate [Orthostatic Standing] 92 H 70 Respiratory Rate 16 Blood Pressure 131/42 L Blood Pressure [Orthostatic Lying] 146/47 H Blood Pressure [Orthostatic Sitting] 142/49 H 152/49 H Blood Pressure [Orthostatic Standing] 109/48 L 132/49 L Pulse Oximetry 97 Oxygen Delivery Method Room Air Oxygen Flow Rate 0 Narrative Exam Narrative: NAD, alert and oriented. Fluent speech. Very hard of hearing. Lungs are clear, normal rate and effort. Heart is regular, no murmur gallop or rub. Abdomen is soft, non distended. Extremities are free of edema. Objective Labs 10/07/23 04:14 10/07/23 04:14 [facility] Medical History Gout Hypertension Hyperlipidemia Type 2 diabetes mellitus Social History household members: spouse Smoking Status: Former smoker alcohol intake: former Assessment & Plan Assessment & Plan narrative: 1. Vertigo with orthostatic hypotension, present on admission and active. 2. New anemia, present on admission and active. 3. Possible pulmonary edema, improved 4. Hypertension, present on admission and active. 5. Hyperlipidemia, present on admission and active. 6. Type 2 diabetes, present on admission and active. 7. Iron deficiency with total iron of 22, TIBC of 151, % saturation of 15, transferrin 99. PLAN: - symptoms likely do to orthostatic hypotension and viral neuritis. Drops >20 points with standing. Trial low dose midodrine 2.5 mg TID. Gave 1L bolus on 10/08 with improvement. - antibiotics were given initially but no ongoing signs of infection but now off antibiotics. - continue to hold home antihypertensives. - orthostatics qshift until negative - outpatient endoscopy recommended for iron deficiency anemia. - continue PT/OT, rec SNF - echo with diastolic dysfunction, but no signficant valvular pathologies. No diuresis recommended currently. Code: Full, surrogate is patient's spouse Dispo: inpatient with persistent dizziness limiting patient's ability to perform ADLs. Possible SNF depending on therapy evaluations over the coming days and / or improvement with midodrine trial today. Time Spent With Patient Time with patient: 30 to 49 minutes with 50% spent counseling/coordinating care Quality VTE Deep Vein Thrombosis/Pulmonary Embolism Present on Admission: No
[2023-10-08 20:00] VITALS: BP 147/38; PULSE 68; RESP 18; TEMP 37.3; O2SAT 94
[2023-10-08] MEDS: SENNOSIDES 8.6 MG TABLET 17.2 MG PO (21:19)
[2023-10-09 04:00] VITALS: BP 145/57; PULSE 66; RESP 18; TEMP 36.3; O2SAT 96
[2023-10-09 05:00] VITALS: BP 139/54; BP 142/51; BP 145/48; PULSE 62; PULSE 66; PULSE 79
[2023-10-09] MEDS: MIDODRINE HCL 5 MG TABLET 2.5 MG PO ×2 (06:55→12:30)
[2023-10-09] MEDS: METFORMIN HCL 500 MG TABLET PO (08:14)
[2023-10-09 09:09] VITALS: BP 142/51; PULSE 66; RESP 18; TEMP 36.5; O2SAT 97
--- NOTE | 2023-10-09 11:13 | P.DS_ITS ---
History of Present Illness History of Present Illness Chief complaint: Weakness Narrative: Patient presents with persistent weakness. The patient apparently was seen at would be emergency department on the and for weakness. The patient had an extensive workup including a CT of the abdomen, and head all of which were normal. He has had low-grade fevers and persistent weakness. He also did have vomiting and diarrhea which have improved over the last day. He arrived here with a chief complaint of weakness and being unable to get out of bed for the last week. He does have a new anemia here with an H&H of 8.6 and 24 can bear to 11 and 34 week ago. When I spoke with the patient he notes that a week ago he went fishing and everything was fine. The next morning he was unable to get out of bed. When I asked him if he was feeling weak in the arms and legs he denied this and said that whenever he would try to get up he would have spinning and dizziness. He denies headache but has had some neck pain. A CT of the brain was unremarkable last week at [facility]. The patient has no history of vertigo. He denies current fevers, or chills. He also denies diplopia, numbness or weakness of arms or legs. No speech difficulties. He is extremely hard of hearing, this is chronic but worse in the last week. He notes a history of a abdominal aneurysm and left carotid stenosis. Discharge Providers Provider Date of admission: 10/06/23 12:50 Discharge Date: 10/09/23 Consults: 10/04/23 13:05 Consult to Occupational Therapy Evaluate & Treat Comment: Physician Instructions: Evaluate and treat Consult to Physical Therapy Evaluate & Treat Comment: Physician Instructions: Evaluate and Treat 10/06/23 12:13 Consult to Home Health Routine Comment: PT Reason For Exam: Home Health Services Discharge provider: Hayes Ariza DO Summary Hospital Course Discharge Diagnosis: 1. Vertigo with orthostatic hypotension likely due to viral neuritis, present on admission and active. 2. New anemia, present on admission and active. 3. Possible pulmonary edema, improved 4. Hypertension, present on admission and active. 5. Hyperlipidemia, present on admission and active. 6. Type 2 diabetes, present on admission and active. 7. Iron deficiency with total iron of 22, TIBC of 151, % saturation of 15, transferrin 99. Hospital Course: Admitted for vertigo of uncertain cause. Brain MRI normal. Was orthostatic so given IVF, midodrine and BP meds held. Orthostasis improved but vertigo persisted. Due to recent flu-like illness, likely ongoing viral vestibular neuritis which should improve with time. Had neck pain which is MSK related, but refused muscle relaxers or pain medication. Discharged to SNF for rehab due to ongoing weakness. Exam Vital Signs (past 8 hours): - 10/09/23 04:00 10/09/23 05:00 10/09/23 07:00 Temperature 97.3 F L Pulse Rate 66 Pulse Rate [Orthostatic Lying] 66 Pulse Rate [Orthostatic Sitting] 62 Pulse Rate [Orthostatic Standing] 79 Respiratory Rate 18 Blood Pressure 145/57 H Blood Pressure [Orthostatic Lying] 142/51 H Blood Pressure [Orthostatic Sitting] 145/48 H Blood Pressure [Orthostatic Standing] 139/54 L Pulse Oximetry 96 Oxygen Delivery Method Room Air Oxygen Flow Rate 0 10/09/23 09:09 Temperature 97.7 F Pulse Rate 66 Pulse Rate [Orthostatic Lying] Pulse Rate [Orthostatic Sitting] Pulse Rate [Orthostatic Standing] Respiratory Rate 18 Blood Pressure 142/51 H Blood Pressure [Orthostatic Lying] Blood Pressure [Orthostatic Sitting] Blood Pressure [Orthostatic Standing] Pulse Oximetry 97 Oxygen Delivery Method Oxygen Flow Rate 0 Oxygen Delivery Method Room Air Oxygen Flow Rate 0 Narrative Exam Narrative: NAD, alert and oriented. Fluent speech. Very hard of hearing. Lungs are clear, normal rate and effort. Heart is regular, no murmur gallop or rub. Abdomen is soft, non distended. Extremities are free of edema. Objective Labs 10/07/23 04:14 10/07/23 04:14 [facility] Medical History Gout Hypertension Hyperlipidemia Type 2 diabetes mellitus Social History household members: spouse Smoking Status: Former smoker alcohol intake: former Discharge Plan Discharge Plan Patient Disposition: SNF Discharge orders & Medications Prescriptions: New midodrine 5 mg Tablet 2.5 mg PO 0600,1200,1800 Qty: 30 0RF Continued Centrum Adult 50 Plus 80 mcg Tablet,Chewable 1 tab PO DAILY allopurinol 300 mg Tablet 300 mg PO DAILY metformin 500 mg Tablet 500 mg PO BID atorvastatin 80 mg Tablet 80 mg PO BEDTIME aspirin 81 mg Tablet,Delayed Release (Dr/Ec) 81 mg PO DAILY Discontinued amlodipine 10 mg Tablet 10 mg PO DAILY lisinopril 40 mg Tablet 40 mg PO DAILY Visit Report/Discharge Packet Stand Alone Forms: Patient Portal/API Quality VTE Deep Vein Thrombosis/Pulmonary Embolism Present on Admission: No
--- NOTE | 2023-10-09 11:32 | CM.DPC ---
DCP Cont. Reviewed EMR and team rounds for status updates. Plan is for pt to d/c to [facility] rehab today between 12:30-1:00pm. Clinicals faxed and family notified, who will be transporting him. No further DCP needs indicated at this time.
--- NOTE | 2023-10-09 12:50 | PT.IPTN ---
Current Diagnoses Dizziness and giddiness (10/06/23) Physical Therapy Treatment Note M2 PT-IP Current Condition Start: 10/05/23 08:36 Freq: NEEDED Status: Active Protocol: Document 10/05/23 10:02 MB (Rec: 10/05/23 11:10 MB [id number]) Physical Therapy Current Condition Current Condition Evaluation Date 10/05/23 Treatment Diagnosis Weakness and dizziness after waking up after upset stomach Onset Date About a week ago per pt M3 PT-IP Subjective Start: 10/05/23 08:36 Freq: NEEDED Status: Active Protocol: Document 10/09/23 13:07 TS (Rec: 10/09/23 13:23 TS [id number]) Subjective Physical Therapy Visit Type Type Treatment Note Visit Start Time 12:50 Visit Stop Time 13:07 Number of VOICE STUDIES DIRECTOR Visits 3 Physical Therapy Visit Comments Patient Comments Pt found resting in bed, reports he continues to get dizzy with ambulation, pt is agreeable to PT. M4 PT-IP Mobility and Gait Start: 10/05/23 08:36 Freq: NEEDED Status: Active Protocol: Document 10/09/23 13:07 TS (Rec: 10/09/23 13:23 TS [id number]) PT-Bed Mobility Assessment Supine to Sit Supine to Sit Standby Assistance,1 Person Assistance,Head of Bed Elevated,Bedrails Scooting Scooting to Edge of Bed Standby Assistance PT-Transfer Assessment Sit to and From Stand Sit to and from Stand Minimal Assistance,1 Person Assistance Equipment Transfer Assistive Device Gait Belt,Front Wheeled Walker Orthotic/Prosthetic Devices or Brace: No Comments Mobility Comments Supine to sit SBA with BUE support, pt reports dizziness. STS from bed with FWW Juan for retroleaning, pt braces back of LE's against bed for balance. He ambulated in room ~25' CGA/SBA, reports increased dizziness and requested to sit down. Pt was left in chair, all needs met. Gait Assessment Gait Gait Assistance Required: Standby Assistance,Contact Guard Assist,1 Person Assist Distance (Feet) 25 Able to Maintain Weight Bearing Status Yes During Gait Assistive Devices Assistive Device Gait Belt,Front Wheeled Walker Orthotic/Prosthetic Devices or Brace: No Gait Deviations General Gait Pattern Decreased Stride Length,Wide Based Gait Factors Limiting Gait Function Factors Limiting Gait Function Decreased Activity Tolerance, Incoordination,Poor Safety Awareness Comments Gait Comments See mobility comments PT-Balance Assessment Sitting Balance and Reactions Static Sitting Balance Ability Normal Dynamic Sitting Balance Ability Good Standing Balance and Reactions Static Standing Balance Ability Fair Dynamic Standing Balance Ability Fair Device Used RW M5 PT-IP Objective Assessments Start: 10/05/23 08:36 Freq: NEEDED Status: Active Protocol: Document 10/06/23 14:35 DCW (Rec: 10/06/23 15:13 DCW [id number]) Orientation Orientation/Cognition Language Function Ability Hard of Hearing M6 PT-IP Treatment Start: 10/05/23 08:36 Freq: NEEDED Status: Active Protocol: Document 10/09/23 13:07 TS (Rec: 10/09/23 13:23 TS [id number]) Physical Therapy Treatment Education Education Provided Safety M7 PT-IP Assessment and Plan Start: 10/05/23 08:36 Freq: NEEDED Status: Active Protocol: Document 10/09/23 13:07 TS (Rec: 10/09/23 13:23 TS [id number]) PT Summary Assessment and Plan Potential Rehabilitation Potential Fair Summary Impairments Pain,ROM,Balance,Transfers, Gait,Activity Tolerance Progress Towards Goals Slow Progress due to Medical Issues Assessment Summary Jama is making slow progress with his mobility. He continues to be SBA for bed mobility. He performed STS Juan with some retroleaning and braces back of LEs to maintain balance. He tolerated some ambulation in room but dizziness continues to limit him in progresing his gait. PT continues to recommend Home vs SNF. Goals Bed Mobility Goal Independent Transfer Goal Independent,Front Wheeled Walker Gait Goal Independent,Front Wheel Walker Gait Distance 100 Days to Meet Goals 5 Frequency of Treatment Frequency Of Treatment Once a Day Treatment Plan Physical Therapy Treatment Plan Bed Mobility Training,Transfer Training,Gait Training, Therapeutic Exercise,Balance Retraining,Discharge Planning, Neuromuscular Re-ed Weight Bearing Status Weight Bearing Status Weight Bear as Tolerated Recommendations To Nursing Amount of Assist Needed 1 Person Assist Discharge Recommendations PT Discharge Recommendations Home Health,Outpatient PT,Home vs SNF Transportation Needs at Discharge Private Vehicle,Wheelchair/ Cabulance
--- NOTE | 2023-10-09 13:40 | PC.NURSE ---
1422--pt being discharged to [facility] and transported by family via private vehicle; discharge packet given to daughter; pt escorted to vehicle via w/c and accompanied by COUNTER POCKET SE[employer]; iv removed intact prior to discharge; all belongings including hearing aids, dentures, glasses, clothes and phone sent w/
== END 2023-10-09 13:38 | DRG 73 ==
LOC: ED 12:19 → AC 12:19
PROVIDERS: Admitting Provider Hospitalist; Emergency Provider Emergency Medicine; Referring Provider Emergency Medicine; Visit Provider Hospitalist
DX: G58.8 Other specified mononeuropathies (principal); J81.0 Acute pulmonary edema; I95.1 Orthostatic hypotension; I10 Essential (primary) hypertension; E78.5 Hyperlipidemia, unspecified; E11.9 Type 2 diabetes mellitus without complications; D64.9 Anemia, unspecified; E61.1 Iron deficiency; M10.9 Gout, unspecified; Z79.84 Long term (current) use of oral hypoglycemic drugs; Z87.891 Personal history of nicotine dependence
CPT/HCPCS: 36415; 70551; 71045; 80048; 80053; 80076; 81001; 82607; 82746; 82962; 83036; 83540; 83550; 83605; 83690; 83735; 84145; 84484; 85025; 85045; 86140; 86850; 86900; 86901; 87040; 87633; 93005; 93306; 96365; 96375; 97116; 97129; 97130; 97163; 97165; 97530; 97535; 99284; G0378; J1815; J2405; J2543